=== PATIENT | female | born 1990 | race Caucasian/White ===

== ENCOUNTER 2020-08-17 15:24 | Outpatient (REF) | payer OTHER, SELFPAY | END 2020-08-17 15:25 | disposition home or self-care (01) | LOC: HO.LAB 15:24 | PROVIDERS: Visit Provider Internal Medicine | DX: Z20.828 Contact with and (suspected) exposure to other viral communicable diseases (principal) | CPT/HCPCS: 36415; C9803; U0003 ==

== ENCOUNTER 2022-03-25 11:31 | Emergency (ER) | payer OTHER, SELFPAY ==
--- NOTE | ~2022-03-25 | CT_ITS ---
EXAMINATION: CT HEAD WITHOUT CONTRAST CLINICAL INFORMATION: Right-sided facial drooping/lip swelling. COMPARISON: None TECHNIQUE: Contiguous axial imaging was performed from the skull base to vertex without intravenous administration of contrast. This CT examination was performed using dose optimization techniques as appropriate, variously including the following: *Automated exposure control *Adjustment of mA and/or kV according to patient size (this includes techniques or standardized protocols for targeted exams where dose is matched to indication/reason for exam; i.e. extremities or head) *Use of iterative reconstruction technique DLP: 722 mGy-cm FINDINGS: There is no evidence of acute intracranial hemorrhage or territorial infarction. No abnormal mass effect or midline shift is seen. Coats to white matter differentiation is well preserved. No extra-axial fluid collections are identified. The ventricles are normal in size. There is no abnormal attenuation within the brain parenchyma. The osseous structures and soft tissues are normal. The mastoid air cells and visualized portions of the paranasal sinuses are well aerated. CT/CT head/brain wo con IMPRESSION: No acute intracranial pathology.
--- NOTE | ~2022-03-25 | XR_ITS ---
EXAMINATION: XR CHEST CLINICAL INFORMATION: Chest pain. COMPARISON: None TECHNIQUE: Frontal view of the chest was obtained. FINDINGS: No significant abnormality is noted involving the heart, lungs, mediastinum, bony thorax or soft tissues. XR/XR chest 1V IMPRESSION: Unremarkable examination.
[2022-03-25 11:35] VITALS: BP 145/108; PULSE 90; RESP 20; TEMP 36.7; O2SAT 97; BMI 40.7
--- NOTE | 2022-03-25 12:21 | ECG_ITS ---
Test Reason : RIGHT SIDE NUMBNESS Blood Pressure : / mmHG Vent. Rate : 075 BPM Atrial Rate : 075 BPM P-R Int : 144 ms QRS Dur : 078 ms QT Int : 396 ms P-R-T Axes : 045 020 025 degrees QTc Int : 442 ms Normal sinus rhythm Normal ECG No previous ECGs available Referred By: Shannon Bacon Electronically Signed By:RASHAAD OVERTON
--- NOTE | 2022-03-25 12:25 | ED.GENADULT ---
HPI - General Adult General Chief complaint: General Medical Stated complaint: high BP/right side of body numb Time Seen by Provider: 03/25/22 11:43 Source: patient Mode of arrival: ambulatory History of Present Illness HPI narrative: 31-year-old female with a past medical history of Sjogren's disease, anxiety, GERD, presenting to the ED complaining of right-sided facial tingling, Facial droop, and lip swelling beginning at 02:00 last night. Reports tingling radiates to right ear and down RUE with associated chest tightness, palpitations, and SOB last night. Admits to taking Benadryl with mild symptomatic improvement. Symptoms still mildly present now however improved from onset. Reports right eye was tearing and had right-sided mouth drooling. Of note also reports right-sided headache x1 week, does report a history of headaches however this 1 has been persistent. Denies vision change/loss, neck pain, back pain, weakness, new medications or exposures, head trauma, nausea/vomiting. Denies taking anticoagulation Onset (ago): hour(s) Related Data Allergies Allergy/AdvReac Type Severity Reaction Status Date / Time No Known Allergies Allergy Verified 03/25/22 12:21 Review of Systems Review of Systems: Constitutional: No Fever, No Chills, No Fatigue, No Malaise ENT/Mouth: No Ear Pain, No Nasal Congestion, No Hoarseness, No sore throat, No Rhinorrhea, No Swallowing Difficulty Eyes: No Eye Pain, No Swelling, No Redness, No Foreign Body, No Discharge, No Vision Changes Cardiovascular: No Chest Pain, No SOB, No Edema, No Palpitations Respiratory: No Cough, No Sputum, No Dyspnea Gastrointestinal: No Nausea, No Vomiting, No Diarrhea, No Constipation, No Abdominal pain Genitourinary: No Dysuria, No Urinary Frequency, No Hematuria, No Urinary Incontinence/retention, No Flank Pain, No Urinary Flow Changes Musculoskeletal: No joint pain, No Myalgias, + lip Swelling Skin: No Skin Lesions, No rash Neuro: No Weakness, + Numbness, + Paresthesias, No Loss of Consciousness, No Dizziness, + Headache, +facial droop Yes all other systems are reviewed and are negative Constitutional: Constitutional: Reports as per HPI Neurologic: Denies Abnormal speech present and Reports Sensory deficit (Neuro) [facility] Past Medical History Attestation statement: The following information was validated with the patient. Social History Social History Advance Directives: No Advance Directives Information Provided: Yes Physical Exam ED Vital Signs: Vital Signs - 24 hr 03/25/22 11:35 03/25/22 15:37 Temperature 98.1 F 98.0 F Pulse Rate 90 79 Respiratory Rate 20 18 Blood Pressure 145/108 H 134/90 H Pulse Oximetry 97 99 Oxygen Delivery Method Room Air Room Air BMI result Body Mass Index 40.7 Const General: cooperative, healthy appearing, no acute distress, alert and awake Orientation/consciousness: patient oriented x3 Limitations: no limitations HENMT Head: Yes normal to inspection and Yes atraumatic Ears: hearing grossly normal bilaterally and mastoids normal General nose exam: Normal external nose present Mouth: Normal oral and palatal mucosa present and lip abnormal (Right lower lip with mild swelling) Throat: Yes posterior oropharynx normal, Yes tonsils normal, Yes uvula midline, No uvula laterally displaced and No uvular edema Eyes General: appearance normal, both eyes and all related structures Pupils: Equal, round and reactive pupils present EOM: EOMs intact bilaterally Neck Neck: Yes normal visual inspection and Yes no meningeal signs Resp Effort & Inspection: normal respiratory effort and no respiratory distress Auscultation: clear to auscultation bilaterally Cardio Rate: regular rate Heart sounds: S1 normal heart sound present and S2 normal heart sound present GI Inspection: Yes normal to inspection Palpation (GI): Soft to palpation, nontender, no guarding and not rigid General: Yes no CVA tenderness Back/Spine/Pelvis Back: no CVA tenderness Skin Rashes: no rashes Wounds: no wounds Neuro Other: No appreciable right-sided facial droop. Forehead not affected. Decreased reported sensation to light touch to right face General: patient oriented x3, gait normal, tone normal, moves all extremities, no meningeal signs, no focal motor deficits and CN's II-XI intact bilaterally Cranial nerves: Yes CN's II-XII intact bilaterally, Yes Equal, round and reactive pupils present, Yes Bilaterally intact EOM present, Yes Nystagmus not present, Yes Normal facial strength present and Yes Midline tongue present Cognition (Neuro): normal cognition Speech: No Abnormal speech present Gait exam (Neuro): Normal gait present Motor exam (neuro): 5/5 motor strength present throughout, Pronator motor function not present and no tremor noted Sensory Exam: Sensory deficit (Neuro) Coordination: [id number] test normal Romberg Test: Negative Extrem General: Yes normal to inspection Course Course Course Narrative: -1400--no leukocytosis. AST/ALT elevated, CRP minimally elevated. Troponin negative, labs otherwise unremarkable XR chest 1V IMPRESSION: Unremarkable examination. ? 1442--CT head/brain wo con IMPRESSION: No acute intracranial pathology. -case d/w Dr. Polanco who is in agreement unlikely Castro's palsy CVT or CVA. Does not recommend high-dose steroid/initiation of Acyclovir at this time -blood pressure improved without intervention. Results discussed with patient including worrisome signs and symptoms and strict return precautions. Swelling improved/resolved during ED visit Results discussed with patient including worrisome signs and symptoms and strict return precautions, and when to return to the emergency department. They verbalized understanding and feel safe for discharge at this time. Medical Decision Making MDM Narrative Medical decision making narrative: 31-year-old female with a past medical history of Sjogren's disease, anxiety, GERD, presenting to the ED complaining of right-sided facial tingling, Facial droop, and lip swelling beginning at 02:00 last night. Reports tingling radiates to right ear and down RUE with associated chest tightness, palpitations, and SOB. On exam hypertensive, NAD, No appreciable right-sided facial droop and forehead sparing. Sensation decreased to right side.+ right-sided lip swelling. Otherwise neuro exam nonfocal. Concern for CVA/TIA vs Allergic reaction, no evidence of angioedema vs metabolic abnormalities vs ?Trigeminal neuralgia. Lower suspicion for SAH. Rule out ACS. physical exam not consistent with Castro's palsy. Plan: EKG, labs, CXR, head CT, re-evaluate Medical Records Medical records reviewed: Yes I reviewed the patient's medical records. Lab Data Lab results reviewed: Yes I reviewed the patient's lab results. Result diagrams: 03/25/22 13:03/25/22 13: Labs: Lab Results 03/25/22 03/25/22 03/25/22 Range/Units : 13:22 13:22 WBC 5.9 (4.8-10.8) X10*3/uL RBC 5.19 (4.20-5.50) X10*6/uL Hgb 15.2 (12.0-16.0) g/dl Hct 45.4 (37.0-47.0) % MCV 87.5 (80.0-98.0) fL MCH 29.3 (27.0-33.0) pg MCHC 33.5 (31.0-35.0) g/dl RDW 13.2 (11.0-16.0) % Plt Count 327 (160-400) X10*3/uL MPV 10.4 (9.4-12.3) fL Immature Gran % (Auto) 0.3 (0.0-0.4) % Neut % (Auto) 59.2 (45-73) % Lymph % (Auto) 30.5 (20-40) % [place] % (Auto) 8.0 (2-11) % Eos % (Auto) 1.5 (0-4) % Baso % (Auto) 0.5 (0-2) % Lymph # (Auto) 1.8 (1.2-4.9) X10*3/uL [place] # (Auto) 0.5 (0.1-1.2) X10*3/uL Eos # (Auto) 0.1 (0.0-0.4) X10*3/uL Baso # (Auto) 0.0 (0.0-0.2) X10*3/uL Abs Immat Gran (auto) 0.02 (0.00-0.03) X10*3/uL Absolute Neuts (auto) 3.5 (2.0-8.3) x10*3/uL Absolute Nucleated RBC 0.000 (0.0-0.012) X10*3/uL Nucleated RBC % (auto) 0.0 (0.0-0.2) /100WBC ESR 14 (0-20) MM/HR PT (10.0-13.1) SEC INR (0.9-1.1) Sodium 140 (135-145) mmol/L Potassium 4.5 (3.3-5.1) mmol/L Chloride 102 (96-108) mmol/L Carbon Dioxide 26 (22-29) mmol/L Anion Gap 17 (12-20) BUN 13 (9-16) mg/dL Creatinine 0.78 (0.5-1.4) mg/dL Estim Creat Clear Calc 119.6 Estimated GFR > 60 Random Glucose 89 (60-115) mg/dL Calcium 9.9 (8.4-10.2) mg/dL Magnesium 1.9 (1.6-2.6) mg/dL Total Bilirubin 0.4 (0.0-1.0) mg/dL Direct Bilirubin 0.2 (0.0-0.5) mg/dL AST 40 H (5-31) U/L ALT 96 H (0-31) U/L Alkaline Phosphatase 64 (39-117) U/L Troponin I High Sens (<3.5-17.0) ng/L C-Reactive Protein 0.76 H (< or = 0.50) mg/dL Total Protein 8.5 H (6.5-8.0) g/dL Albumin 4.8 (3.5-5.0) g/dL TSH (0.32-4.0) uIU/mL COVID-19 ([facility]) (Negative) COVID-19 Clin Com 03/25/22 03/25/22 03/25/22 Range/Units 13:22 13:22 13:22 WBC (4.8-10.8) X10*3/uL RBC (4.20-5.50) X10*6/uL Hgb (12.0-16.0) g/dl Hct (37.0-47.0) % MCV (80.0-98.0) fL MCH (27.0-33.0) pg MCHC (31.0-35.0) g/dl RDW (11.0-16.0) % Plt Count (160-400) X10*3/uL MPV (9.4-12.3) fL Immature Gran % (Auto) (0.0-0.4) % Neut % (Auto) (45-73) % Lymph % (Auto) (20-40) % [place] % (Auto) (2-11) % Eos % (Auto) (0-4) % Baso % (Auto) (0-2) % Lymph # (Auto) (1.2-4.9) X10*3/uL [place] # (Auto) (0.1-1.2) X10*3/uL Eos # (Auto) (0.0-0.4) X10*3/uL Baso # (Auto) (0.0-0.2) X10*3/uL Abs Immat Gran (auto) (0.00-0.03) X10*3/uL Absolute Neuts (auto) (2.0-8.3) x10*3/uL Absolute Nucleated RBC (0.0-0.012) X10*3/uL Nucleated RBC % (auto) (0.0-0.2) /100WBC ESR (0-20) MM/HR PT 12.8 (10.0-13.1) SEC INR 1.1 (0.9-1.1) Sodium (135-145) mmol/L Potassium (3.3-5.1) mmol/L Chloride (96-108) mmol/L Carbon Dioxide (22-29) mmol/L Anion Gap (12-20) BUN (9-16) mg/dL Creatinine (0.5-1.4) mg/dL Estim Creat Clear Calc Estimated GFR Random Glucose (60-115) mg/dL Calcium (8.4-10.2) mg/dL Magnesium (1.6-2.6) mg/dL Total Bilirubin (0.0-1.0) mg/dL Direct Bilirubin (0.0-0.5) mg/dL AST (5-31) U/L ALT (0-31) U/L Alkaline Phosphatase (39-117) U/L Troponin I High Sens < 3.5 (<3.5-17.0) ng/L C-Reactive Protein (< or = 0.50) mg/dL Total Protein (6.5-8.0) g/dL Albumin (3.5-5.0) g/dL TSH (0.32-4.0) uIU/mL COVID-19 ([facility]) Negative (Negative) COVID-19 Clin Com See Note 03/25/22 Range/Units 13:22 WBC (4.8-10.8) X10*3/uL RBC (4.20-5.50) X10*6/uL Hgb (12.0-16.0) g/dl Hct (37.0-47.0) % MCV (80.0-98.0) fL MCH (27.0-33.0) pg MCHC (31.0-35.0) g/dl RDW (11.0-16.0) % Plt Count (160-400) X10*3/uL MPV (9.4-12.3) fL Immature Gran % (Auto) (0.0-0.4) % Neut % (Auto) (45-73) % Lymph % (Auto) (20-40) % [place] % (Auto) (2-11) % Eos % (Auto) (0-4) % Baso % (Auto) (0-2) % Lymph # (Auto) (1.2-4.9) X10*3/uL [place] # (Auto) (0.1-1.2) X10*3/uL Eos # (Auto) (0.0-0.4) X10*3/uL Baso # (Auto) (0.0-0.2) X10*3/uL Abs Immat Gran (auto) (0.00-0.03) X10*3/uL Absolute Neuts (auto) (2.0-8.3) x10*3/uL Absolute Nucleated RBC (0.0-0.012) X10*3/uL Nucleated RBC % (auto) (0.0-0.2) /100WBC ESR (0-20) MM/HR PT (10.0-13.1) SEC INR (0.9-1.1) Sodium (135-145) mmol/L Potassium (3.3-5.1) mmol/L Chloride (96-108) mmol/L Carbon Dioxide (22-29) mmol/L Anion Gap (12-20) BUN (9-16) mg/dL Creatinine (0.5-1.4) mg/dL Estim Creat Clear Calc Estimated GFR Random Glucose (60-115) mg/dL Calcium (8.4-10.2) mg/dL Magnesium (1.6-2.6) mg/dL Total Bilirubin (0.0-1.0) mg/dL Direct Bilirubin (0.0-0.5) mg/dL AST (5-31) U/L ALT (0-31) U/L Alkaline Phosphatase (39-117) U/L Troponin I High Sens (<3.5-17.0) ng/L C-Reactive Protein (< or = 0.50) mg/dL Total Protein (6.5-8.0) g/dL Albumin (3.5-5.0) g/dL TSH 0.84 (0.32-4.0) uIU/mL COVID-19 ([facility]) (Negative) COVID-19 Clin Com ECG Data Attestation: I personally reviewed and interpreted this ECG as follows: Interpretation: EKG normal sinus rhythm at a rate of 75. QTC 442. OH interval 144. No STEMI/nonischemic Discharge Plan Discharge Clinical Impression: Tingling of face Patient Disposition: Home, Self-Care Instructions: Paresthesia (ED) Additional Instructions: Your blood work, CT scan, and chest x-ray were reassuring today in the emergency department. Your liver enzymes are mildly elevated, follow up with her doctor in regards to this It is very important you have close follow-up with her doctor. If her symptoms persist, worsen, progress, if headache, weakness, fever please return to the emergency department Referrals: Lisa Jones NP [Primary Care Provider] - 2 days
[2022-03-25 13:30] LABS: Basophils Percent Auto 0.5 % (0-2); Eosinophils Absolute Auto 0.1 X10*3/uL (0.0-0.4); Eosinophils Percent Auto 1.5 % (0-4); Hematocrit 45.4 % (37.0-47.0); Hemoglobin 15.2 g/dl (12.0-16.0); Imm Gran Abs Auto 0.02 X10*3/uL (0.00-0.03); Imm Gran Pct Auto 0.3 % (0.0-0.4); Lymphocytes Absolute Auto 1.8 X10*3/uL (1.2-4.9); Lymphocytes Percent Auto 30.5 % (20-40); MANUAL DIFF FLAG NO; Mean Corpuscular HGB Conc 33.5 g/dl (31.0-35.0); Mean Corpuscular Hemoglobin 29.3 pg (27.0-33.0); Mean Corpuscular Volume 87.5 fL (80.0-98.0); Mean Platelet Volume 10.4 fL (9.4-12.3); Monocytes Absolute Auto 0.5 X10*3/uL (0.1-1.2); Neutrophils Absolute Auto 3.5 x10*3/uL (2.0-8.3); Neutrophils Percent Auto 59.2 % (45-73); Platelet Count 327 X10*3/uL (160-400); Red Blood Count 5.19 X10*6/uL (4.20-5.50); Red Cell Distribution Width 13.2 % (11.0-16.0); White Blood Count 5.9 X10*3/uL (4.8-10.8)
[2022-03-25 13:37] LABS: INTERNATIONAL NORM RATIO 1.1 (0.9-1.1); Prothrombin Time 12.8 SEC (10.0-13.1)
[2022-03-25 13:45] LABS: Alanine Aminotransferase 96 U/L (0-31); Albumin Level 4.8 g/dL (3.5-5.0); Alkaline Phosphatase 64 U/L (39-117); Anion Gap 17 (12-20); Aspartate Amino Transferase 40 U/L (5-31); Bilirubin Direct 0.2 mg/dL (0.0-0.5); Bilirubin Total 0.4 mg/dL (0.0-1.0); Blood Urea Nitrogen 13 mg/dL (9-16); C Reactive Protein 0.76 mg/dL (< or = 0.50); Calcium 9.9 mg/dL (8.4-10.2); Carbon Dioxide 26 mmol/L (22-29); Chloride 102 mmol/L (96-108); Creatinine Clr Calc Pharmacy 119.6; Estimated Glomerular Filt Rate > 60; Glucose Random 89 mg/dL (60-115); Magnesium 1.9 mg/dL (1.6-2.6); Potassium 4.5 mmol/L (3.3-5.1); Sodium 140 mmol/L (135-145); Total Protein 8.5 g/dL (6.5-8.0)
[2022-03-25 13:49] LABS: COVID-19 Test Negative (Negative); IDNOW Serial# 16C4AD1C
[2022-03-25 13:52] LABS: Troponin-I High Sensitivity < 3.5 ng/L (<3.5-17.0)
[2022-03-25 14:05] LABS: TSH reflex Free T4 0.84 uIU/mL (0.32-4.0)
[2022-03-25 14:08] LABS: Erythrocyte Sedimentation Rate 14 MM/HR (0-20)
[2022-03-25 15:37] VITALS: BP 134/90; PULSE 79; RESP 18; TEMP 36.7; O2SAT 99
--- NOTE | 2022-03-25 15:42 | PC.NURSE ---
assumed care of pt, recheck vss - pt remains hypertensive, denies any pain at this time. provider notified of vss.
[2022-03-30 10:00] LABS: 18 KD (IgG) Band NON-REACTIVE; 23 KD (IgG) Band NON-REACTIVE; 23 KD (IgM) Band NON-REACTIVE; 28 KD (IgG) Band NON-REACTIVE; 30 KD (IgG) Band NON-REACTIVE; 39 KD (IgM) Band NON-REACTIVE; 39KD (IgG) Band NON-REACTIVE; 41 KD (IgM) Band NON-REACTIVE; 41KD (IgG) Band NON-REACTIVE; 45 KD (IgG) Band REACTIVE; 58 KD (IgG) Band REACTIVE; 66 KD (IgG) Band REACTIVE; 93 KD (IgG) Band NON-REACTIVE; Lyme Abs Screen POSITIVE; Lyme IgG Blot Interp NEGATIVE (NEGATIVE); Lyme IgM Blot Interp NEGATIVE (NEGATIVE)
== END 2022-03-25 16:37 | disposition home or self-care (01) ==
PROVIDERS: Physician Assistant; Emergency Provider Student in an Organized Health Care Education/Training Program; PCP Nurse Practitioner Family
DX: R20.2 Paresthesia of skin (principal); R06.02 Shortness of breath; Z20.822 Contact with and (suspected) exposure to COVID-19
CPT/HCPCS: 36415; 70450; 71045; 80048; 80076; 83735; 84443; 84484; 85025; 85610; 85652; 86140; 86617; 86618; 87635; 93005; 99283; 99284

== ENCOUNTER 2022-05-23 22:05 | Emergency (ER) | payer OTHER, SELFPAY ==
--- NOTE | ~2022-05-23 | CT_ITS ---
EXAMINATION: CT HEAD WITHOUT CONTRAST CLINICAL INFORMATION: Severe right-sided headache COMPARISON: 03/25/2022 TECHNIQUE: Contiguous axial imaging was performed from the skull base to vertex without intravenous administration of contrast. This CT examination was performed using dose optimization techniques as appropriate, variously including the following: *Automated exposure control *Adjustment of mA and/or kV according to patient size (this includes techniques or standardized protocols for targeted exams where dose is matched to indication/reason for exam; i.e. extremities or head) *Use of iterative reconstruction technique DLP: 719 mGy-cm FINDINGS: There is no evidence of acute intracranial hemorrhage or territorial infarction. No abnormal mass-effect or midline shift is seen. Coats to white matter differentiation is well preserved. No extra-axial fluid collections are identified. The ventricles are normal in size. There is no abnormal attenuation within the brain parenchyma. The osseous structures and soft tissues are normal. The mastoid air cells and visualized portions of the paranasal sinuses are well-aerated. CT/CT head/brain wo IV con IMPRESSION: No acute intracranial pathology.
[2022-05-23 23:06] VITALS: BP 148/97; PULSE 103; RESP 18; TEMP 36.9; O2SAT 97; BMI 40.7
--- OUTSIDE RECORDS SUMMARY | 2022-05-23 23:32 | XMS_ITS | Continuity of Care Document ---
:1990 Author Organization [facility] Address [address] [place] [address]- Care Team Providers Name Role Phone Saray GARCIA, Deneen Primary Care Physician Encounter [facility] NBR [id number] Date(s): 10/22/20 - [facility] [address] [place] [address]- Allergies, Adverse Reactions, Alerts Substance Reaction Severity Status NKA Active Immunizations Given and Recorded Vaccine Date Status Refusal Reason Influenza Virus Vaccine (oldterm) 05/19/19 Recorded Influenza Virus Vaccine (oldterm) 05/20/18 Recorded Influenza Virus Vaccine (oldterm) 05/13/17 Recorded tetanus/diphtheria/pertussis, acel(Tdap) 04/21/14 Recorde d influenza virus vaccine, inactivated 06/20/13 Recorded Human Papillomavirus Vaccine 06/03/13 Recorded Human Papillomavirus Vaccine 08/23/09 Recorded Human Papillomavirus Vaccine 02/17/08 Recorded Meningococcal Conjugate Vaccine 08/23/09 Recorded hepatitis B pediatric vaccine 09/13/01 Recorded hepatitis B pediatric vaccine 04/12/01 Recorded hepatitis B pediatric vaccine 03/12/01 Recorded tetanus-diphtheria toxoids (Td) 03/12/01 Recorded Varicella Virus Vaccine 05/27/98 Recorded Poliovirus Vaccine, Inactivated 01/02/95 Recorded Poliovirus Vaccine, Inactivated 07/21/91 Recorded Measles/Mumps/Rubella Virus Vaccine 01/02/95 Recorded Measles/Mumps/Rubella Virus Vaccine 01/16/91 Recorded diphtheria/tetanus/pertussis, acel(DTaP) 01/02/95 Recorde d diphtheria/tetanus/pertussis, acel(DTaP) 07/21/91 Recorde d Haemophilus B Conj Vaccine (oldterm) 01/16/91 Recorded Medications citalopram 20 mg oral tablet 20 mg, 1, tablet, By Mouth, Daily, # 30 tablet, Refills 0, Tot. Refills 0, Maintenance, 08/09/20 17:17:00 EST, Route to Pharmacy Electronically, [facility]/pharmacy #[id number], Partial fill upon patient request ifthe prescription is for a schedule II opioid drug. Start Date: 08/09/20 Status: Orderedomeprazole 20 mg oral enteric coated capsule 1 capsule = 20 mg, By Mouth, 2 times a day, # 30 capsule, 0 Refills, Maintenance, 10/21/20 15:34:00 EST, EC Capsule, Partial fill upon patient request if the prescription is for a schedule II opioid drug. Start Date: 10/21/20 Status: OrderedProAir HFA 90 mcg/inh inhalation aerosol 2 puffs, Inhalation, Every 4 hours, PRN as needed for wheezing, # 6.7 Gm, 0 Refills, Maintenance, 10/21/20 15:36:00 EST, Aerosol, Partial fill upon patient request if the prescription is for a scheduleII opioid drug. Start Date: 10/21/20 Status: Orderedriboflavin 100 mg oral tablet 2 tablet = 200 mg, By Mouth, 2 times a day, # 30 tablet, 0 Refills, Maintenance, 10/21/20 15:33:00 EST, Tablet, Partial fill upon patient request if the prescription is for a schedule II opioid drug. Start Date: 10/21/20 Status: Orderedtopiramate 25 mg oral tablet 0 Refills, Maintenance, 08/09/20 17:24:00 EST, Partial fill upon patient request if the prescriptionis for a schedule II opioid drug. Start Date: 08/09/20 Status: OrderedVITAMIN B-2 100 MG TABLET VITAMIN B-2 100 MG TABLET, 0 Refills, Maintenance, 08/09/20 17:25:00 EST Start Date: 08/09/20 Status: OrderedVitamin D3 1000 intl units oral capsule 1 capsule = 1,000 International_Units, By Mouth, Daily, # 75 capsule, 0 Refills, Maintenance, 10/21/20 15:35:00 EST, Capsule, Partial fill upon patient request if the prescription is for a schedule II opioid drug. Start Date: 10/21/20 Status: Ordered Problem List Condition Effective Dates Status Health Status Informant Acne(Confirmed) Active Allergic rhinitis(Confirmed) Active JOSE positive(Confirmed) Active Carpal tunnel syndrome, Active left(Confirmed) Contusion of right shoulder(Confirmed) Active Internal derangement of knee Active joint(Confirmed) Acid reflux disease(Confirmed) Active History of pelvic fracture(Confirmed) Active Hirsutism(Confirmed) Active Insomnia(Confirmed) Active Migraine(Confirmed) Active Anxiety with depression(Confirmed) Active Pain in joints(Confirmed) Active Nodular thyroid disease(Confirmed) Active Supervision of normal Active (Confirmed) Encounter to establish care(Confirmed) Active PTSD (post-traumatic stress Active disorder)(Confirmed) Rectal bleeding(Confirmed) Active Sjogren's syndrome(Confirmed) Active Sleep apnea(Confirmed) Active Hepatic steatosis(Confirmed) Active Vitamin D deficiency(Confirmed) Active Social History Social History Type Response Smoking Status Never (less than 100 in life time) entered on: 08/09/20 Sex
--- OUTSIDE RECORDS SUMMARY | 2022-05-23 23:33 | XMS_ITS | Continuity of Care Document ---
:1990 Author Organization [facility] Address [address] [place] [address]- Care Team Providers Name Role Phone Deneen So NP Primary Care Physician Encounter [email or web address] NBR [id number] Date(s): 10/28/21 - 11/27/21 [facility] [address] [place] [address]- Allergies, Adverse Reactions, Alerts No Known Allergies Immunizations Given and Recorded Vaccine Date Status Refusal Reason influenza virus vaccine, inactivated 05/13/21 Recorded influenza virus vaccine, inactivated 06/04/20 Recorded influenza virus vaccine, inactivated 06/20/13 Recorded SARS-CoV-2 (COVID-19) mRNA-1273 vaccine 12/11/20 Recorded SARS-CoV-2 (COVID-19) mRNA-1273 vaccine 11/13/20 Recorded Influenza Virus Vaccine (oldterm) 05/19/19 Recorded Influenza Virus Vaccine (oldterm) 05/20/18 Recorded Influenza Virus Vaccine (oldterm) 05/13/17 Recorded tetanus/diphtheria/pertussis, acel(Tdap) 04/21/14 Recorde d tetanus/diphtheria/pertussis, acel(Tdap) 03/12/01 Recorde d Human Papillomavirus Vaccine 06/03/13 Recorded Human Papillomavirus [...] B Conj Vaccine (oldterm) 01/16/91 Recorded Medications cyclobenzaprine 5 mg oral tablet See Instructions, Take 1 tablet every 8 hours as needed for muscle spasm, # 21 capsule, 0 Refills, Maintenance, 06/28/21 15:50:00 EST, Tablet, [facility]/pharmacy #[id number], Partial fill upon patient request if the prescription is for a schedule II opioid drug.,... Start Date: 06/28/21 Status: OrderedProAir HFA 90 mcg/inh inhalation aerosol 2 puffs, Inhalation, Every 4 hours, PRN as needed for wheezing, # 6.7 Gm, 0 Refills, Maintenance, 10/21/20 15:36:00 EST, Aerosol, Partial fill upon patient request if the prescription is for a scheduleII opioid drug. Start Date: 10/21/20 Status: OrderedVitamin D3 1000 intl units oral [...] positive(Confirmed) Active Carpal tunnel syndrome, Active left(Confirmed) Chest wall pain(Confirmed) Active Contusion of right shoulder(Confirmed) Active Internal derangement of knee Active joint(Confirmed) Acid reflux disease(Confirmed) Active History of pelvic fracture(Confirmed) Active Hirsutism(Confirmed) Active Insomnia(Confirmed) Active Bilateral nephrolithiasis(Confirmed) Active Migraine(Confirmed) Active Anxiety with depression(Confirmed) Active Pain in joints(Confirmed) Active Nodular thyroid disease(Confirmed) Active Pulmonary nodule(Confirmed)1 Active Supervision of normal Active (Confirmed) Throat pain(Confirmed) Active PTSD (post-traumatic stress Active disorder)(Confirmed) Rectal bleeding(Confirmed) Active Severe obesity(Confirmed) Active Sjogren's syndrome(Confirmed) Active Sleep apnea(Confirmed) Active Hepatic steatosis(Confirmed) Active Thyroid nodule(Confirmed) Active Vitamin D deficiency(Confirmed) Active 13 mm Social History Social History Type Response Smoking Status Never (less than 100 in life time) entered on: 08/09/20 Sex
--- OUTSIDE RECORDS SUMMARY | 2022-05-23 23:33 | XMS_ITS | Continuity of Care Document ---
:1990 Author Organization [facility] Address [address] [place] [id number]- Care Team Providers Name Role Phone Deneen So NP Primary Care Physician [place] [facility] [place]03/20 [facility] [address] [place] [id number] Allergies, Adverse Reactions, Alerts Substance Reaction Severity [...] 08/09/20 17:17:00 EST, Route to Pharmacy Electronically, [facility]/pharmacy #[id number], Partial fill upon patient request ifthe prescription [...]
--- OUTSIDE RECORDS SUMMARY | 2022-05-23 23:33 | XMS_ITS | Continuity of Care Document ---
:1990 Author Organization [facility] Address [address] [place] [address]- Care Team Providers Name Role Phone Deneen So NP Primary Care Physician [place] [facility] [place]21 [facility] [address] [place] [id number] Attending Physician: Russ Valenzuela MD Admitting Physician: Russ Valenzuela MD Referring Physician: Deneen So NP Allergies, Adverse Reactions, Alerts No Known Allergies [...] 0 Refills, Maintenance, 06/28/21 15:50:00 EST, Tablet, [facility]/pharmacy #[id number], Partial fill upon patient request if [...] disease(Confirmed) Active Supervision of normal Active (Confirmed) PTSD (post-traumatic stress Active disorder)(Confirmed) Rectal bleeding(Confirmed) Active Severe obesity(Confirmed) Active Sjogren's syndrome(Confirmed) Active Sleep apnea(Confirmed) Active Hepatic steatosis(Confirmed) Active Thyroid nodule(Confirmed) Active Vitamin D deficiency(Confirmed) Active Social History Social History Type Response Smoking Status Never (less than 100 in life time) entered on: 08/09/20 Sex
--- OUTSIDE RECORDS SUMMARY | 2022-05-23 23:33 | XMS_ITS | Continuity of Care Document ---
:1990 Author Organization [facility] Address [address] [place] [address] Drive [address] [place] [address]- Care Team Providers Name Role Phone Deneen So NP Primary Care Physician Encounter [facility] Date(s): 09/06/20 - 10/06/[address] [place] [address]- Attending Physician: Rylie Little Admitting Physician: AdmtrRylie Referring Physician: Admtr ArHaseeb Allergies, Adverse Reactions, Alerts Substance Reaction Severity Status NKA Active Medications citalopram 20 mg oral tablet 20 mg, 1, tablet, By Mouth, Daily, # 30 tablet, Refills 0, Tot. Refills 0, Maintenance, 08/09/20 17:17:00 EST, Route to Pharmacy Electronically, [facility]/pharmacy #[id number], Partial fill upon patient request ifthe prescription is for a schedule II opioid drug. Start Date: 08/09/20 Status: OrderedPlenvu oral powder for reconstitution See Instructions, Complete on day before procedure, # 1,000 mL, 0 Refills, Maintenance, 09/30/20 16:01:00 EST, [facility]/pharmacy #[id number], Partial fill upon patient request if the prescription is for a schedule II opioid drug., Complete on day before procedure Start Date: 09/30/20 Status: Orderedtopiramate 25 mg oral tablet 0 Refills, Maintenance, 08/09/20 17:24:00 EST, Partial fill upon patient request if the prescriptionis for a schedule II opioid drug. Start Date: 08/09/20 Status: OrderedVITAMIN B-2 100 MG TABLET VITAMIN B-2 100 MG TABLET, 0 Refills, Maintenance, 08/09/20 17:25:00 EST Start Date: 08/09/20 Status: Ordered Problem List Condition Effective Dates Status Health Status Informant Acid reflux disease(Confirmed) Active Insomnia(Confirmed) Active Migraine(Confirmed) Active Anxiety with depression(Confirmed) Active Pain in joints(Confirmed) Active Encounter to establish care(Confirmed) Active PTSD (post-traumatic stress Active disorder)(Confirmed) Rectal bleeding(Confirmed) Active Sleep apnea(Confirmed) Active Vitamin D deficiency(Confirmed) Active Social History Social History Type Response Smoking Status Never (less than 100 in life time) entered on: 08/09/20 Sex
--- OUTSIDE RECORDS SUMMARY | 2022-05-23 23:33 | XMS_ITS | Continuity of Care Document ---
:1990 Author Organization [facility] Address [address] [place] [address]- Care Team Providers Name Role Phone Saray GARCIA, Deneen Primary Care Physician Encounter [facility] NBR [id number] Date(s): 11/03/21 - 12/03/[address] [address] Allergies, Adverse Reactions, Alerts No Known Allergies [...] 0 Refills, Maintenance, 06/28/21 15:50:00 EST, Tablet, [facility]/pharmacy #[id number], Partial fill upon patient request if [...]
--- OUTSIDE RECORDS SUMMARY | 2022-05-23 23:33 | XMS_ITS | Continuity of Care Document ---
:1990 Author Organization [facility] Address [address] [facility] [address] [place] [address]- Care Team Providers Name Role Phone Saray GARCIA, Deneen Primary Care Physician Encounter 11/02/21 - 11/09/21 [facility] [address], [address] [place] [address]- Encounter Diagnosis Bilateral nephrolithiasis (Discharge Diagnosis) - 11/04/21 Pulmonary nodule (Discharge Diagnosis) - 11/04/21 Attending Physician: Deneen So NP Admitting Physician: Deneen So NP Referring Physician: Deneen So NP Allergies, Adverse [...] Active Vitamin D deficiency(Confirmed) Active 13 mm Diagnosis Diagnosis Type Effective Dates Health Clinical Infor mant Status Service Bilateral Discharge 11/04/21 nephrolithiasis Diagnosis Pulmonary nodule Discharge 11/04/21 Diagnosis Social History Social History Type Response Smoking Status Never (less than 100 in life time) entered on: 08/09/20 Sex
--- OUTSIDE RECORDS SUMMARY | 2022-05-23 23:33 | XMS_ITS | Continuity of Care Document ---
:1990 Author Organization [facility] Address [address] [place] [address]- Care Team Providers Name Role Phone Saray GARCIA, Deneen Primary Care Physician [facility]counter [facility] Date(s): 02/10/21 - 03/12/21 [facility] [address] [place] [address]- Allergies, Adverse Reactions, Alerts Substance Reaction Severity [...] 08/09/20 17:17:00 EST, Route to Pharmacy Electronically, [facility]/pharmacy #[id number], Partial fill upon patient request ifthe prescription [...]
--- OUTSIDE RECORDS SUMMARY | 2022-05-23 23:33 | XMS_ITS | Continuity of Care Document ---
:1990 Author Organization [facility] Address [address] [place] [address]- Care Team Providers Name Role Phone Saray GARCIA, Deneen Primary Care Physician Encounter [facility] Date(s): 04/12/22 - 05/13/22 [facility] [address] [place] [address]- Attending Physician: Juli Bonds Allergies, Adverse Reactions, Alerts No Known Allergies [...] B Conj Vaccine (oldterm) 01/16/91 Recorded Medications buPROPion 150 mg/24 hours (XL) oral tablet, extended release 1 tablet = 150 mg, By Mouth, Every 24 hours, for 30 days, # 30 tablet, 2 Refills, Acute 06/16/22 11:34:00 EDT, 03/18/22 11:34:00 EDT, ER Tablet, [facility]/pharmacy #[id number], 1 tablet By Mouth Every 24 hours,[id number], 159, cm, 02/21/22 11:23:00 EDT, Height, 98.... Start Date: 03/18/22 Stop Date: 06/16/22 Status: OrderedbuPROPion 150 mg/24 hours (XL) oral tablet, extended release 1 tablet = 150 mg, By Mouth, Every 24 hours, for 30 days, # 30 tablet, 3 Refills, Acute 10/14/22 11:34:00 EST, 06/16/22 11:34:00 EDT, ER Tablet, [facility]/pharmacy #[id number], 1 tablet By Mouth Every 24 hours,[id number], 159, cm, 02/21/22 11:23:00 EDT, Height, 98.... Start Date: 06/16/22 Stop Date: 10/14/22 Status: Orderedhydroxychloroquine 200 mg oral tablet 2, tablet, By Mouth, Daily, # 60 tablet, Refills 3, Route to Pharmacy Electronically, [facility] STORE [id number], 159, cm, 06/28/21 15:10:00 EST, Height, 98.4, kg, 10/20/20 7:15:00 EST, Dry Weight Start Date: 10/29/21 Status: Ordered Problem List Condition Confirmation Course Effective Dates Status Health I nformant Status Acne Confirmed Active Allergic rhinitis Confirmed Active JOSE positive Confirmed Active Carpal tunnel Confirmed Active syndrome, left Chest wall pain Confirmed Active Contusion of right Confirmed Active shoulder Internal derangement Confirmed Active of knee joint Acid reflux disease Confirmed Active History of pelvic Confirmed Active fracture Hirsutism Confirmed Active Insomnia Confirmed Active Bilateral Confirmed Active nephrolithiasis Migraine Confirmed Active Anxiety with Confirmed Active depression Pain in joints Confirmed Active Nodular thyroid Confirmed Active disease Pulmonary nodule1 Confirmed Active Throat pain Confirmed Active PTSD (post-traumatic Confirmed Active stress disorder) Rectal bleeding Confirmed Active Severe obesity Confirmed Active Sjogren's syndrome Confirmed Active Sleep apnea Confirmed Active Hepatic steatosis Confirmed Active Thyroid nodule Confirmed Active Vitamin D deficiency Confirmed Active 13 mm Social History Social History Type Response Smoking Status Never (less than 100 in life time) entered on: 08/09/20 Sex Patient Care team information PersonnelName: Deneen So NP Address: Address: [address] [place] [address]-
--- OUTSIDE RECORDS SUMMARY | 2022-05-23 23:33 | XMS_ITS | Continuity of Care Document ---
:1990 Author Organization [facility] Address [address] [place] [address]- Care Team Providers Name Role Phone Deneen So NP Primary Care Physician Encounter [facility] NBR [id number] Date(s): 12/07/20 - 02/26/21 [facility] [address] [place] [address] Attending Physician: Stewart Johns MD Allergies, Adverse Reactions, Alerts Substance Reaction Severity [...] 08/09/20 17:17:00 EST, Route to Pharmacy Electronically, [facility]/pharmacy #[id number], Partial fill upon patient request ifthe prescription [...]
--- OUTSIDE RECORDS SUMMARY | 2022-05-23 23:33 | XMS_ITS | Continuity of Care Document ---
:1990 Author Organization [facility] Address [address] [place] [address]- Care Team Providers Name Role Phone Saray GARCIA, Deneen Primary Care Physician Encounter [facility] Date(s): 06/27/21 - 07/27/21 [facility] Adult [address] [place] [address]- Allergies, Adverse Reactions, Alerts Substance Reaction Severity [...] 0 Refills, Maintenance, 06/28/21 15:50:00 EST, Tablet, [facility]/pharmacy #[id number], Partial fill upon [...]
--- OUTSIDE RECORDS SUMMARY | 2022-05-23 23:33 | XMS_ITS | Continuity of Care Document ---
:[address] [facility] Address [address] [place] [address]- Care Team Providers Name Role Phone Deneen So NP Primary Care Physician Encounter [facility] Date(s): 11/04/21 - 12/04/21 [facility] [address] [place] [address] Allergies, Adverse Reactions, Alerts No Known Allergies [...] 0 Refills, Maintenance, 06/28/21 15:50:00 EST, Tablet, [facility]/pharmacy #[id number], Partial fill upon patient request [...]
--- OUTSIDE RECORDS SUMMARY | 2022-05-23 23:33 | XMS_ITS | Continuity of Care Document ---
:1990 Author Organization [facility] Address [address] [place] [address]- Care Team Providers Name Role Phone Saray GARCIA, Deneen Primary Care Physician Encounter [facility] Date(s): 12/19/21 - 01/18/22 [facility] [address] [place] [address]- Allergies, Adverse Reactions, Alerts No Known Allergies [...] hours, for 30 days, # 30 tablet, 1 Refills, Acute 03/18/22 11:34:00 EDT, 01/17/22 11:34:00 EDT, ER Tablet, [facility]/pharmacy #[id number], 1 tablet By Mouth Every 24 hours,[id number], 159, cm, 01/17/22 11:06:00 EDT, Height, 98.... Start Date: 01/17/22 Stop Date: 03/18/22 Status: OrderedProAir HFA 90 mcg/inh inhalation aerosol 2 puffs = 180 mcg, Inhalation, Every 4 hours, PRN as needed for wheezing, for 30 days, # 1 each, 0 Refills, Acute 02/16/22 11:34:00 EDT, 01/17/22 11:34:00 EDT, Inhaler, [facility]/pharmacy #[id number], 2 puffs Inhalation Every 4 hours,x30 days,PRN:as needed for wh... Start Date: 01/17/22 Stop Date: 02/16/22 Status: Ordered Problem List Condition Effective Dates [...] Nodular thyroid disease(Confirmed) Active Pulmonary nodule(Confirmed)1 Active Throat pain(Confirmed) Active PTSD (post-traumatic stress Active disorder)(Confirmed) Rectal bleeding(Confirmed) Active Severe obesity(Confirmed) Active Sjogren's syndrome(Confirmed) Active Sleep apnea(Confirmed) Active Hepatic steatosis(Confirmed) Active Thyroid nodule(Confirmed) Active Vitamin D deficiency(Confirmed) Active 13 mm Social History Social History Type Response Smoking Status Never (less than 100 in life time) entered on: 08/09/20 Sex
--- OUTSIDE RECORDS SUMMARY | 2022-05-23 23:33 | XMS_ITS | Continuity of Care Document ---
:1990 Author Organization [facility] Address [address] [place] [address]- Care Team Providers Name Role Phone Saray GARCIA, Deneen Primary Care Physician Encounter [facility] Date(s): 01/19/21 - 02/25/[address] [address] Attending Physician: Tiffany Lozano NP Admitting Physician: Tiffany Lozano NP Referring Physician: Tiffany Lozano NP Allergies, Adverse Reactions, Alerts Substance Reaction Severity [...] 17:17:00 EST, Route to Pharmacy Electronically, [facility]/pharmacy #[id number], Partial fill upon patient request ifthe prescription [...]
--- OUTSIDE RECORDS SUMMARY | 2022-05-23 23:33 | XMS_ITS | Continuity of Care Document ---
:1990 Author Organization [facility] Address [address] [place] [address]- Care Team Providers Name Role Phone Deneen So NP Primary Care Physician Encounter [facility] Date(s): 12/08/21 - 01/07/22 [facility] [address] [place] [address] Attending Physician: Rylie Little Admitting Physician: AdmRylie sewell Referring Physician: AdmtrRylie Allergies, Adverse Reactions, Alerts No Known Allergies [...]
--- OUTSIDE RECORDS SUMMARY | 2022-05-23 23:33 | XMS_ITS | Continuity of Care Document ---
:1990 Author Organization [facility] Address [address] [place] [address]- Care Team Providers Name Role Phone Saray GARCIA, Deneen Primary Care Physician Encounter [facility] Date(s): 04/13/22 - 05/13/22 [facility] [address] [place] [address]- Attending Physician: Admtr, Trent8 Admitting Physician: Admtr, Trent8 Referring Physician: Admtr, Ar8 Allergies, Adverse Reactions, Alerts No Known Allergies [...] 11:34:00 EDT, 03/18/22 11:34:00 EDT, ER Tablet, [facility]/pharmacy #[id number], 1 tablet By Mouth Every 24 hours,[id number], 159, cm, 02/21/22 11:23:00 EDT, Height, 98.... Start Date: 03/18/22 Stop Date: 06/16/22 Status: OrderedbuPROPion 150 mg/24 hours (XL) oral tablet, extended release 1 tablet = 150 mg, By Mouth, Every 24 hours, for 30 days, # 30 tablet, 3 Refills, Acute 10/14/22 11:34:00 EST, 06/16/22 11:34:00 EDT, ER Tablet, [facility]/pharmacy #[id number], 1 tablet By Mouth Every 24 hours,[id number], 159, cm, 02/21/22 11:23:00 EDT, Height, 98.... Start Date: 06/16/22 Stop Date: 10/14/22 Status: Orderedhydroxychloroquine 200 mg oral tablet 2, tablet, By Mouth, Daily, # 60 tablet, Refills 3, Route to Pharmacy Electronically, [facility] STORE [id number], 159, cm, 06/28/21 15:10:00 EST, Height, 98.4, [...] information PersonnelName: Deneen So NP Address: Address: [address] [place] [address]
--- OUTSIDE RECORDS SUMMARY | 2022-05-23 23:33 | XMS_ITS | Continuity of Care Document ---
:1990 Author Organization [facility] Address Unavailable , Care Team Providers Name Role Phone Deneen So NP Primary Care Physician Encounter [facility] Date(s): 05/17/21 - 06/16/21 [facility] Allergies, Adverse Reactions, Alerts Substance Reaction Severity [...] B Conj Vaccine (oldterm) 01/16/91 Recorded Medications ProAir HFA 90 mcg/inh inhalation aerosol 2 puffs, [...]
--- OUTSIDE RECORDS SUMMARY | 2022-05-23 23:33 | XMS_ITS | Continuity of Care Document ---
:1990 Author Organization [facility] Address [address] [place] [address]- Care Team Providers Name Role Phone Deneen So NP Primary Care Physician Encounter [facility] Date(s): 09/08/21 - 10/08/21 [facility] [address] [place] [address] Attending Physician: AdmRylie sewell Admitting Physician: Admtr, ArHaseeb Referring Physician: Admtr, Ar8 Allergies, Adverse Reactions, [...]
--- OUTSIDE RECORDS SUMMARY | 2022-05-23 23:33 | XMS_ITS | Continuity of Care Document ---
:1990 Author Organization [facility] Address [address] [place] [address]- Care Team Providers Name Role Phone Saray GARCIA, Deneen Primary Care Physician [place] [facility] Date(s): 09/30/20 - 10/30/20 [facility] [address] [place] [address]- Allergies, Adverse Reactions, Alerts Substance Reaction Severity [...] 08/09/20 17:17:00 EST, Route to Pharmacy Electronically, [facility]/pharmacy #[id number], Partial fill upon patient request ifthe prescription [...]
--- OUTSIDE RECORDS SUMMARY | 2022-05-23 23:33 | XMS_ITS | Continuity of Care Document ---
:1990 Author Organization [facility] Address [address] [place] [address]- Care Team Providers Name Role Phone Deneen So NP Primary Care Physician Encounter [facility] Date(s): 08/09/20 - 09/08/20 [facility] [address] [place] [address]- Attending Physician: Rylie Little Admitting Physician: AdmtrRylie Referring Physician: Admtr, Ar8 Allergies, Adverse Reactions, Alerts Substance Reaction Severity Status NKA Active Medications citalopram 20 mg oral tablet 20 mg, 1, tablet, By Mouth, Daily, # 30 tablet, Refills 0, Tot. Refills 0, Maintenance, 08/09/20 17:17:00 EST, Route to Pharmacy Electronically, [facility]/pharmacy #[id number], Partial fill upon patient request ifthe prescription is for a schedule II opioid drug. Start Date: 08/09/20 Status: Orderedtopiramate 25 mg oral tablet 0 [...]
--- OUTSIDE RECORDS SUMMARY | 2022-05-23 23:33 | XMS_ITS | Continuity of Care Document ---
:[address] [facility] Address [address] [place] [address]- Care Team Providers Name Role Phone Saray GARCIA, Deneen Primary Care Physician Encounter [facility] Date(s): 02/11/21 - 03/13/21 [facility] [address] [place] [address]- Allergies, Adverse Reactions, Alerts Substance Reaction Severity [...] 08/09/20 17:17:00 EST, Route to Pharmacy Electronically, [facility]/pharmacy #[id number], Partial fill upon patient request ifthe prescription [...]
--- OUTSIDE RECORDS SUMMARY | 2022-05-23 23:33 | XMS_ITS | Continuity of Care Document ---
:1990 Author Organization [facility] Address Unavailable , Care Team Providers Name Role Phone Deneen So NP Primary Care Physician En[place] [facility] Date(s): 05/10/21 - 06/09/21 [facility] Allergies, Adverse Reactions, Alerts Substance [...]
--- OUTSIDE RECORDS SUMMARY | 2022-05-23 23:33 | XMS_ITS | Continuity of Care Document ---
:1990 Author Organization [facility] Address [address] [place] [address]- Care Team Providers Name Role Phone Saray GARCIA, Deneen Primary Care Physician Encounter [facility] Date(s): 01/27/21 - 03/11/[address] [address] Attending Physician: Tiffany Lozano NP Admitting Physician: [...] 08/09/20 17:17:00 EST, Route to Pharmacy Electronically, [id number]/pharmacy #[id number], Partial fill upon patient request ifthe prescription [...]
--- OUTSIDE RECORDS SUMMARY | 2022-05-23 23:33 | XMS_ITS | Continuity of Care Document ---
:1990 Author Organization [facility] Adult Address [address] [place] [address]- Care Team Providers Name Role Phone Saray GARCIA, Deneen Primary Care Physician Encounter [facility] Date(s): 04/13/22 - 05/13/22 [facility] [address] [place] [address]- Allergies, Adverse Reactions, Alerts No Known Allergies [...] 11:34:00 EDT, 03/18/22 11:34:00 EDT, ER Tablet, [facility]/pharmacy #[id number], 1 tablet By Mouth Every 24 hours,[id number], 159, cm, 02/21/22 11:23:00 EDT, Height, 98.... Start Date: 03/18/22 Stop Date: 06/16/22 Status: OrderedbuPROPion 150 mg/24 hours (XL) oral tablet, extended release 1 tablet = 150 mg, By Mouth, Every 24 hours, for 30 days, # 30 tablet, 3 Refills, Acute 10/14/22 11:34:00 EST, 06/16/22 11:34:00 EDT, ER Tablet, [facility]/pharmacy #[id number], 1 tablet By Mouth Every 24 hours,[id number], 159, cm, 02/21/22 11:23:00 EDT, Height, 98.... Start Date: 06/16/22 Stop Date: 10/14/22 Status: Orderedhydroxychloroquine 200 mg oral tablet 2, tablet, By Mouth, Daily, # 60 tablet, Refills 3, Route to Pharmacy Electronically, [facility] STORE [id number], 159, cm, 06/28/21 15:10:00 EST, Height, 98.4, [...] information PersonnelName: Deneen So NP Address: Address: [address] [place] [address]-
--- OUTSIDE RECORDS SUMMARY | 2022-05-23 23:33 | XMS_ITS | Continuity of Care Document ---
:1990 Author Organization [facility] Address [address] [place] [address]- Care Team Providers Name Role Phone Deneen So NP Primary Care Physician Encounter [facility] Date(s): 08/09/20 - 08/16/20 [facility] [address] [place] [address]- Encounter Diagnosis Sleep apnea (Discharge Diagnosis) - 08/09/20 PTSD (post-traumatic stress disorder) (Discharge Diagnosis) - 08/09/20 Anxiety with depression (Discharge Diagnosis) - 08/09/20 Migraine (Discharge Diagnosis) - 08/09/20 Vitamin D deficiency (Discharge Diagnosis) - 08/09/20 Insomnia (Discharge Diagnosis) - 08/09/20 Pain in joints (Discharge Diagnosis) - 08/09/20 Acid reflux disease (Discharge Diagnosis) - 08/09/20 Rectal bleeding (Discharge Diagnosis) - 08/09/20 Encounter to establish care (Discharge Diagnosis) - 08/09/20 Attending Physician: Deneen So NP Allergies, Adverse Reactions, Alerts Substance Reaction Severity Status NKA Active Medications citalopram 20 mg oral tablet 20 mg, 1, tablet, By Mouth, Daily, # 30 tablet, Refills 0, Tot. Refills 0, Maintenance, 08/09/20 17:17:00 EST, Route to Pharmacy Electronically, [facility]/pharmacy #[id number], Partial fill upon patient request ifthe prescription [...] Sleep apnea(Confirmed) Active Vitamin D deficiency(Confirmed) Active Diagnosis Diagnosis Type Effective Dates Health Clinical Infor mant Status Service Sleep apnea Discharge 08/09/20 Diagnosis PTSD Discharge 08/09/20 (post-traumatic Diagnosis stress disorder) Anxiety with Discharge 08/09/20 depression Diagnosis Migraine Discharge 08/09/20 Diagnosis Vitamin D Discharge 08/09/20 deficiency Diagnosis Insomnia Discharge 08/09/20 Diagnosis Pain in joints Discharge 08/09/20 Diagnosis Acid reflux Discharge 08/09/20 disease Diagnosis Rectal bleeding Discharge 08/09/20 Diagnosis Encounter to Discharge 08/09/20 establish care Diagnosis Procedures Procedure Date Related Diagnosis Body Site Status Breast reduction Completed H/O: tubal ligation1 [place] [id number] Social History Social History Type Response Smoking Status Never (less than 100 in life time) entered on: 08/09/20 Sex
--- OUTSIDE RECORDS SUMMARY | 2022-05-23 23:34 | XMS_ITS | Continuity of Care Document ---
:1990 Author Organization [facility] Address [address] [place] [address]- Care Team Providers Name Role Phone Saray GARCIA, Deneen Primary Care Physician [place] [facility] [place] 02/21/22 - 02/28/22 [facility] [address] [place] [address]- Encounter Diagnosis Severe obesity (Discharge Diagnosis) - 02/20/22 Anxiety with depression (Discharge Diagnosis) - 02/21/22 Throat pain (Discharge Diagnosis) - 02/21/22 Attending Physician: Lisa Jones NP Referring Physician: Sal AMBRIZ, [place] Allergies, Adverse Reactions, Alerts No Known Allergies [...] 11:34:00 EDT, 03/18/22 11:34:00 EDT, ER Tablet, [facility]/pharmacy #[id number], 1 tablet By Mouth Every 24 hours,[id number], 159, cm, 02/21/22 11:23:00 EDT, Height, 98.... Start Date: 03/18/22 Stop Date: 06/16/22 Status: OrderedbuPROPion 150 mg/24 hours (XL) oral tablet, extended release 1 tablet = 150 mg, By Mouth, Every 24 hours, for 30 days, # 30 tablet, 1 Refills, Acute 03/18/22 11:34:00 EDT, 01/17/22 11:34:00 EDT, ER Tablet, [facility]/pharmacy #[id number], 1 tablet By Mouth Every 24 hours,[id number], 159, cm, 01/17/22 11:06:00 EDT, Height, 98.... Start Date: 01/17/22 Stop Date: 03/18/22 Status: Ordered Problem List Condition Effective Dates [...] Dates Health Clinical Infor mant Status Service Severe obesity Discharge 02/20/22 Diagnosis Anxiety with Discharge 02/21/22 depression Diagnosis Throat pain Discharge 02/21/22 Diagnosis Vital Signs Most recent to oldest [Reference Range]: 1 Height 159 cm (02/21/22 11:23 AM) Weight 103.8 kg (02/21/22 11:23 AM) Oxygen Saturation [94-100 %] 97 % (02/21/22 11:23 AM) Pulse Rate [55-90 bpm] 102 bpm *H* (02/21/22 11:23 AM) Body Mass Index [18.5-24.99] 41.06 *>HHI* (02/21/22 11:23 AM) Blood Pressure [90-138/55-84 mm Hg] 116/74 mm Hg (02/21/22 11:23 AM) Blood pressure sites Arm, left (02/21/22 11:23 AM) Social History Social History Type Response Smoking Status Never (less than 100 in life time) entered on: 08/09/20 Sex
--- OUTSIDE RECORDS SUMMARY | 2022-05-23 23:34 | XMS_ITS | Continuity of Care Document ---
:1990 Author Organization [facility] Adult Address [address] [place] [address]- Care Team Providers Name Role Phone Saray GARCIA, Deneen Primary Care Physician [facility]counter [facility] Date(s): 06/27/21 - 07/27/21 [facility] Adult [address] [place] [address]- Allergies, Adverse Reactions, Alerts Substance Reaction Severity [...] 0 Refills, Maintenance, 06/28/21 15:50:00 EST, Tablet, [facility]/pharmacy #[id number], Partial fill upon patient request [...]
--- OUTSIDE RECORDS SUMMARY | 2022-05-23 23:34 | XMS_ITS | Continuity of Care Document ---
:1990 Author Organization [facility] Adult Address [address] [place] [address]- Care Team Providers Name Role Phone Saray GARCIA, Deneen Primary Care Physician Encounter [facility] Date(s): 01/17/22 - 01/24/22 [facility] Adult [address] [place] [address]- Encounter Diagnosis Severe obesity (Discharge Diagnosis) - 01/18/22 Sleep apnea (Discharge Diagnosis) - 01/18/22 Throat pain (Discharge Diagnosis) - 01/18/22 Acid reflux disease (Discharge Diagnosis) - 01/18/22 Anxiety with depression (Discharge Diagnosis) - 01/18/22 Exercise-induced asthma (Discharge Diagnosis) - 01/18/22 Thyroid nodule (Discharge Diagnosis) - 01/18/22 Attending Physician: Not on Staff, Attending MD Allergies, Adverse Reactions, Alerts No Known Allergies [...] Papillomavirus Vaccine 06/03/13 Recorded Human Papillomavirus Vaccine 1/11/10 Recorded Human Papillomavirus Vaccine 02/17/08 Recorded Meningococcal [...] 11:34:00 EDT, 01/17/22 11:34:00 EDT, ER Tablet, [facility]/pharmacy #[id number], 1 tablet By Mouth Every 24 hours,[id number], 159, cm, 01/17/22 11:06:00 EDT, Height, 98.... Start Date: 01/17/22 Stop Date: 03/18/22 Status: OrderedProAir HFA 90 mcg/inh inhalation aerosol 2 puffs = 180 mcg, Inhalation, Every 4 hours, PRN as needed for wheezing, for 30 days, # 1 each, 0 Refills, Acute 02/16/22 11:34:00 EDT, 01/17/22 11:34:00 EDT, Inhaler, [facility]/pharmacy #[id number], 2 puffs Inhalation Every 4 hours,x30 [...] Active 13 mm Diagnosis Diagnosis Type Effective [facility] Clinical Infor mant Status Service Severe obesity Discharge 01/18/22 Diagnosis Sleep apnea Discharge 01/18/22 Diagnosis Throat pain Discharge 01/18/22 Diagnosis Acid reflux Discharge 01/18/22 disease Diagnosis Anxiety with Discharge 01/18/22 depression Diagnosis Exercise-induced Discharge 01/18/22 asthma Diagnosis Thyroid nodule Discharge 01/18/22 Diagnosis Vital Signs Most recent to oldest [Reference Range]: 1 2 Height 159 cm 159 cm (01/17/22 3:14 PM) (01/17/22 11:06 AM) Weight 105.6 kg 105.6 kg (01/17/22 3:14 PM) (01/17/22 11:06 AM) Oxygen Saturation [94-100 %] 98 % (01/17/22 11:06 AM) Pulse Rate [55-90 bpm] 104 bpm *H* (01/17/22 11:06 AM) Body Mass Index [18.5-24.99] 41.77 *>HHI* (01/17/22 11:06 AM) Blood Pressure [90-138/55-84 mm Hg] 122/76 mm Hg (01/17/22 11:06 AM) Temperature [96.8-100.4 DegF] 98.3 DegF (01/17/22 11:06 AM) Blood pressure sites Arm, right (01/17/22 11:06 AM) Social History Social History Type Response Smoking Status Never (less than 100 in life time) entered on: 08/09/20 Sex
--- OUTSIDE RECORDS SUMMARY | 2022-05-23 23:34 | XMS_ITS | Continuity of Care Document ---
:1990 Author Organization [facility] Rheumatology Address [address] [place] [address]- Care Team Providers Name Role Phone Deneen So NP Primary Care Physician Encounter [facility] Date(s): 01/18/22 - 02/18/22 [facility] Rhe[facility]ology [address] [place] [address]- Attending Physician: Stewart Johns MD Allergies, Adverse Reactions, Alerts No Known [...] 11:34:00 EDT, 01/17/22 11:34:00 EDT, ER Tablet, [facility]/pharmacy #[id number], 1 tablet By Mouth Every 24 hours,[id number], 159, cm, 01/17/22 11:06:00 EDT, Height, 98.... [...]
--- OUTSIDE RECORDS SUMMARY | 2022-05-23 23:34 | XMS_ITS | Continuity of Care Document ---
:1990 Author Organization [facility] Gastroenterology Address [address] [place] [address]- Care Team Providers Name Role Phone Saray GARCIA, Deneen Primary Care Physician Encounter [facility] Date(s): 10/14/20 - 11/13/20 [facility] [address] [place] [id number] Allergies, Adverse Reactions, Alerts Substance Reaction Severity [...] 08/09/20 17:17:00 EST, Route to Pharmacy Electronically, [facility]/pharmacy #[id number], Partial fill upon patient request ifthe prescription [...]
--- OUTSIDE RECORDS SUMMARY | 2022-05-23 23:34 | XMS_ITS | Continuity of Care Document ---
:1990 Author Organization [facility] Adult Address [address] [place] [address]- Care Team Providers Name Role Phone Deneen So NP Primary Care Physician Encounter [facility] Date(s): 06/28/21 - 07/05/21 [facility] Adult [address] [place] [address]- Encounter Diagnosis Neck pain (Discharge Diagnosis) - 06/28/21 Localized swelling, mass, and lump of head (Discharge Diagnosis) - 06/28/21 Nodular thyroid disease (Discharge Diagnosis) - 06/28/21 Attending Physician: Deneen So NP Allergies, Adverse [...] 0 Refills, Maintenance, 06/28/21 15:50:00 EST, Tablet, [facility]/pharmacy #[id number], Partial fill upon patient [...] Hepatic steatosis(Confirmed) Active Vitamin D deficiency(Confirmed) Active Diagnosis Diagnosis Type Effective Dates Health Status Clinical In formant Service Neck pain Discharge 06/28/21 Diagnosis Localized Discharge 06/28/21 swelling, mass, Diagnosis and lump of head Nodular thyroid Discharge 06/28/21 disease Diagnosis Vital Signs Most recent to oldest [Reference Range]: 1 Height 159 cm (06/28/21 3:10 PM) Weight 104.9 kg (06/28/21 3:10 PM) Oxygen Saturation [94-100 %] 98 % (06/28/21 3:10 PM) Pulse Rate [55-90 bpm] 93 bpm *H* (06/28/21 3:10 PM) Body Mass Index [18.5-24.99] 41.49 *>HHI* (06/28/21 3:10 PM) Blood Pressure [90-138/55-84 mm Hg] 135/80 mm Hg (06/28/21 3:10 PM) Blood pressure sites Arm, right (06/28/21 3:10 PM) Social History Social History Type Response Smoking Status Never (less than 100 in life time) entered on: 08/09/20 Sex
--- OUTSIDE RECORDS SUMMARY | 2022-05-23 23:34 | XMS_ITS | Continuity of Care Document ---
:1990 Author Organization [facility] Address Unavailable , Care Team Providers Name Role Phone Deneen So NP Primary Care Physician Encounter [facility] Date(s): 05/19/21 - 06/18/21 [facility] Attending Physician: Rylie Little Admitting Physician: AdmtrRylie Referring Physician: Admtr, Trent8 Allergies, Adverse Reactions, Alerts Substance Reaction Severity [...]
--- OUTSIDE RECORDS SUMMARY | 2022-05-23 23:34 | XMS_ITS | Continuity of Care Document ---
:1990 Author Organization [facility] Rheumatology Address [address] [place] [address]- Care Team Providers Name Role Phone Deneen So NP Primary Care Physician Encounter [facility] Date(s): 05/16/21 - 06/15/21 [facility] Rheumatology [address] [place] [id number] Allergies, Adverse Reactions, Alerts Substance Reaction [...]
--- OUTSIDE RECORDS SUMMARY | 2022-05-23 23:34 | XMS_ITS | Continuity of Care Document ---
:1990 Author Organization [facility] Adult Address [address] [place] [address]- Care Team Providers Name Role Phone Saray GARCIA, Deneen Primary Care Physician Encounter [facility] Date(s): 03/29/22 - 04/28/22 [facility] Adult [address] [place] [address]- Allergies, Adverse Reactions, Alerts No Known Allergies [...] 11:34:00 EDT, 03/18/22 11:34:00 EDT, ER Tablet, [facility]/pharmacy #[id number], 1 tablet By Mouth Every 24 hours,[id number], 159, cm, 02/21/22 11:23:00 EDT, Height, 98.... Start Date: 03/18/22 Stop Date: 06/16/22 Status: OrderedbuPROPion 150 mg/24 hours (XL) oral tablet, extended release 1 tablet = 150 mg, By Mouth, Every 24 hours, for 30 days, # 30 tablet, 3 Refills, Acute 10/14/22 11:34:00 EST, 06/16/22 11:34:00 EDT, ER Tablet, [facility]/pharmacy #[id number], 1 tablet By Mouth Every 24 hours,[id number], 159, cm, 02/21/22 11:23:00 EDT, Height, 98.... Start Date: 06/16/22 Stop Date: 10/14/22 Status: Orderedhydroxychloroquine 200 mg oral tablet 2, tablet, By Mouth, Daily, # 60 tablet, Refills 3, Route to Pharmacy Electronically, [id number], 159, cm, 06/28/21 15:10:00 EST, Height, 98.4, kg, 10/20/20 7:15:00 EST, Dry Weight Start Date: 10/29/21 Status: Ordered Problem List Condition Effective Dates [...] in life time) entered on: 08/09/20 Sex Care Team PersonnelName: Deneen So NP Address: [address] [place] [address] Adult [place], [place] [address]
--- OUTSIDE RECORDS SUMMARY | 2022-05-23 23:34 | XMS_ITS | Continuity of Care Document ---
:1990 Author Organization [facility] Adult Address [address] [place] [address]- Care Team Providers Name Role Phone Saray GARCIA, Deneen Primary Care Physician [facility]counter [facility] Date(s): 06/28/21 - 08/31/21 [facility] Adult [address] [place] [address]- Attending Physician: Deneen So NP Referring Physician: Jersey Huang MD Allergies, Adverse Reactions, Alerts No Known [...]
--- OUTSIDE RECORDS SUMMARY | 2022-05-23 23:34 | XMS_ITS | Continuity of Care Document ---
:1990 Author Organization [facility] Adult Address [address] [place] [address]- Care Team Providers Name Role Phone Saray GARCIA, Deneen Primary Care Physician Encounter [facility] Date(s): 01/03/21 - 02/02/21 [facility] Adult [address] [place] [address]- Allergies, Adverse Reactions, Alerts Substance Reaction Severity [...] 08/09/20 17:17:00 EST, Route to Pharmacy Electronically, [facility]/pharmacy #[id number], Partial fill upon patient request ifthe prescription [...]
--- OUTSIDE RECORDS SUMMARY | 2022-05-23 23:34 | XMS_ITS | Continuity of Care Document ---
:1990 Author Organization [facility] Adult Address [address] [place] [address]- Care Team Providers Name Role Phone Saray GARCIA, Deneen Primary Care Physician Encounter [facility] Date(s): 10/27/21 - 11/26/21 [facility] Adult [address] [place] [address]- Allergies, Adverse Reactions, Alerts No Known Allergies [...] 0 Refills, Maintenance, 06/28/21 15:50:00 EST, Tablet, [facility]/pharmacy #[id number], Partial fill upon [...]
--- OUTSIDE RECORDS SUMMARY | 2022-05-23 23:34 | XMS_ITS | Continuity of Care Document ---
:[address] [facility] Adult Address [address] [place] [address]- Care Team Providers Name Role Phone Deneen So NP Primary Care Physician Encounter [facility] Date(s): 08/01/21 - 08/31/21 [facility] Adult [address] [place] [address]- Attending Physician: AdmRylie sewell Admitting Physician: Admtr, [...]
--- OUTSIDE RECORDS SUMMARY | 2022-05-23 23:34 | XMS_ITS | Continuity of Care Document ---
:1990 Author Organization [facility] Address [address] [place] [address] Drive [address] [place] [address]- Care Team Providers Name Role Phone Saray GARCIA, Deneen Primary Care Physician Encounter [facility] Date(s): 09/06/20 - 10/06/[address] [place] [id number] Allergies, Adverse Reactions, Alerts Substance Reaction Severity Status NKA Active Medications citalopram 20 mg oral tablet 20 mg, 1, tablet, By Mouth, Daily, # 30 tablet, Refills 0, Tot. Refills 0, Maintenance, 08/09/20 17:17:00 EST, Route to Pharmacy Electronically, [facility]/pharmacy #[id number], Partial fill upon patient request ifthe prescription is for a schedule II opioid drug. Start Date: 08/09/20 Status: OrderedPlenvu oral powder for reconstitution See Instructions, Complete on day before procedure, # 1,000 mL, 0 Refills, Maintenance, 09/30/20 16:01:00 EST, [facility]/pharmacy #[id number], Partial fill upon patient request [...]
--- OUTSIDE RECORDS SUMMARY | 2022-05-23 23:34 | XMS_ITS | Continuity of Care Document ---
:1990 Author Organization [facility] Endocrinology and [facility] Address [address] [place] [address]- Care Team Providers Name Role Phone Deneen So NP Primary Care Physician Encounter [facility] Date(s): 11/03/21 - 01/06/22 [facility] Endocrinology and Diabetes [address] [place] [id number] Attending Physician: Russ Valenzuela MD Admitting [...]
--- OUTSIDE RECORDS SUMMARY | 2022-05-23 23:34 | XMS_ITS | Continuity of Care Document ---
:1990 Author Organization [facility] Adult Address [address] [place] [address]- Care Team Providers Name Role Phone Deneen So NP Primary Care Physician Encounter [facility] Date(s): 11/02/21 - 11/09/21 [facility] Adult [address] [place] [address]- Encounter Diagnosis LUQ pain (Discharge Diagnosis) - 11/02/21 Attending Physician: Deneen So NP Allergies, Adverse [...] mm Diagnosis Diagnosis Type Effective Dates Health Status Clinical Serv ice Informant LUQ pain Discharge 11/02/21 Diagnosis Vital Signs Most recent to oldest [Reference Range]: 1 Height 159 cm (11/02/21 10:57 AM) Weight 105.3 kg (11/02/21 10:57 AM) Oxygen Saturation [94-100 %] 99 % (11/02/21 10:57 AM) Pulse Rate [55-90 bpm] 78 bpm (11/02/21 10:57 AM) Body Mass Index [18.5-24.99] 41.65 *>HHI* (11/02/21 10:57 AM) Blood Pressure [90-138/55-84 mm Hg] 119/73 mm Hg (11/02/21 10:57 AM) Blood pressure sites Arm, right (11/02/21 10:57 AM) Social History Social History Type Response Smoking Status Never (less than 100 in life time) entered on: 08/09/20 Sex
--- OUTSIDE RECORDS SUMMARY | 2022-05-23 23:34 | XMS_ITS | Continuity of Care Document ---
:1990 Author Organization [facility] Adult Address [address] [place] [address]- Care Team Providers Name Role Phone Saray GARCIA, Deneen Primary Care Physician [facility]counter [facility] Date(s): 03/17/21 - 04/16/21 [facility] Adult [address] [place] [address]- Allergies, Adverse Reactions, Alerts Substance Reaction Severity [...] EST, Route to Pharmacy Electronically, [facility]/pharmacy #[id number], Partial fill upon patient request ifthe prescription [...]
--- OUTSIDE RECORDS SUMMARY | 2022-05-23 23:34 | XMS_ITS | Continuity of Care Document ---
:1990 Author Organization [facility] Gastroenterology Address [address] [place] [address]- Care Team Providers Name Role Phone Saray GARCIA, Deneen Primary Care Physician Encounter [facility] Date(s): 09/07/20 - 11/25/20 [facility] [address] [place] [address] Attending Physician: Parish Hightower MD Admitting Physician: Parish Hightower MD Referring Physician: Shelby Chang NP Allergies, Adverse Reactions, Alerts Substance Reaction [...] 08/09/20 17:17:00 EST, Route to Pharmacy Electronically, [facility]/pharmacy #[id number], Partial fill upon patient request ifthe prescription [...]
--- OUTSIDE RECORDS SUMMARY | 2022-05-23 23:34 | XMS_ITS | Continuity of Care Document ---
:1990 Author Organization [facility] Adult Address [address] [place] [address]- Care Team Providers Name Role Phone Saray GARCIA, Deneen Primary Care Physician Encounter [facility] Date(s): 10/31/21 - 11/30/21 [facility] Adult [address] [place] [address]- Allergies, Adverse Reactions, Alerts No Known Allergies [...] Refills, Maintenance, 06/28/21 15:50:00 EST, Tablet, [facility]/pharmacy #[id number], Partial fill upon patient request [...]
--- OUTSIDE RECORDS SUMMARY | 2022-05-23 23:34 | XMS_ITS | Continuity of Care Document ---
:1990 Author Organization [facility] Adult Address [address] [place] [address]- Care Team Providers Name Role Phone Deneen So NP Primary Care Physician Encounter [facility] Date(s): 11/09/21 - 11/16/21 [facility] Adult [address] [place] [address]- Encounter Diagnosis Chest wall pain (Discharge Diagnosis) - 11/09/21 Throat pain (Discharge Diagnosis) - 11/09/21 Attending Physician: Deneen So NP Allergies, Adverse [...] Dates Health Status Clinical In formant Service Chest wall pain Discharge 11/09/21 Diagnosis Throat pain Discharge 11/09/21 Diagnosis Vital Signs Most recent to oldest [Reference Range]: 1 Height 159 cm (11/09/21 10:33 AM) Weight 106.6 kg (11/09/21 10:33 AM) Oxygen Saturation [94-100 %] 100 % (11/09/21 10:33 AM) Pulse Rate [55-90 bpm] 88 bpm (11/09/21 10:33 AM) Body Mass Index [18.5-24.99] 42.17 *>HHI* (11/09/21 10:33 AM) Blood Pressure [90-138/55-84 mm Hg] 124/78 mm Hg (11/09/21 10:33 AM) Blood pressure sites Arm, right (11/09/21 10:33 AM) Weight Obtained Via Standing scale (11/09/21 10:33 AM) Social History Social History Type Response Smoking Status Never (less than 100 in life time) entered on: 08/09/20 Sex
--- OUTSIDE RECORDS SUMMARY | 2022-05-23 23:34 | XMS_ITS | Continuity of Care Document ---
:1990 Author Organization [facility] Address [address] [place] [address]- Care Team Providers Name Role Phone Deneen So NP Primary Care Physician Encounter [facility] Date(s): 01/05/21 - 03/24/21 [facility] [address] [place] [id number] Attending Physician: Snehal Sandhu MD Referring Physician: Deneen So NP Allergies, [...] 08/09/20 17:17:00 EST, Route to Pharmacy Electronically, [facility]/pharmacy #[id number], Partial fill upon patient request ifthe prescription [...]
--- OUTSIDE RECORDS SUMMARY | 2022-05-23 23:34 | XMS_ITS | Continuity of Care Document ---
:1990 Author Organization [facility] Rheumatology Address [address] [place] [address]- Care Team Providers Name Role Phone Saray GARCIA, Deneen Primary Care Physician Encounter [facility] Date(s): 10/15/20 - 02/12/21 [facility] Rheumatology [address] [place] [id number] Attending Physician: Stewart Johns MD Allergies, Adverse [...] 08/09/20 17:17:00 EST, Route to Pharmacy Electronically, [facility]/pharmacy #[id number], Partial fill upon patient request ifthe prescription [...]
--- OUTSIDE RECORDS SUMMARY | 2022-05-23 23:34 | XMS_ITS | Continuity of Care Document ---
:1990 Author Organization [facility] Adult Address [address] [place] [address]- Care Team Providers Name Role Phone Saray GARCIA, Deneen Primary Care Physician [facility] Date(s): 03/31/22 - 04/30/22 [facility] Adult [address] [place] [address]- Allergies, Adverse Reactions, Alerts No Known Allergies [...] 11:34:00 EDT, 03/18/22 11:34:00 EDT, ER Tablet, [facility]/pharmacy #[id number], 1 tablet By Mouth Every 24 hours,[id number], 159, cm, 02/21/22 11:23:00 EDT, Height, 98.... Start Date: 03/18/22 Stop Date: 06/16/22 Status: OrderedbuPROPion 150 mg/24 hours (XL) oral tablet, extended release 1 tablet = 150 mg, By Mouth, Every 24 hours, for 30 days, # 30 tablet, 3 Refills, Acute 10/14/22 11:34:00 EST, 06/16/22 11:34:00 EDT, ER Tablet, [facility]/pharmacy #[id number], 1 tablet By Mouth Every 24 hours,[id number], 159, cm, 02/21/22 11:23:00 EDT, Height, 98.... Start Date: 06/16/22 Stop Date: 10/14/22 Status: Orderedhydroxychloroquine 200 mg oral tablet 2, tablet, By Mouth, Daily, # 60 tablet, Refills 3, Route to Pharmacy Electronically, [facility] [id number], 159, cm, 06/28/21 15:10:00 EST, Height, 98.4, [...] Care Team PersonnelName: Deneen So NP Address: [address] [place] [id number]
--- OUTSIDE RECORDS SUMMARY | 2022-05-23 23:35 | XMS_ITS | Continuity of Care Document ---
:1990 Author Organization [facility] Adult Address [address] [place] [address]- Care Team Providers Name Role Phone Saray GARCIA, Deneen Primary Care Physician [facility]counter [facility] Date(s): 03/27/22 - 04/26/22 [facility] Adult [address] [place] [address]- Allergies, Adverse Reactions, Alerts No Known Allergies [...] 11:34:00 EDT, 03/18/22 11:34:00 EDT, ER Tablet, [facility]/pharmacy #[id number], 1 tablet By Mouth Every 24 hours,[id number], 159, cm, 02/21/22 11:23:00 EDT, Height, 98.... Start Date: 03/18/22 Stop Date: 06/16/22 Status: OrderedbuPROPion 150 mg/24 hours (XL) oral tablet, extended release 1 tablet = 150 mg, By Mouth, Every 24 hours, for 30 days, # 30 tablet, 3 Refills, Acute 10/14/22 11:34:00 EST, 06/16/22 11:34:00 EDT, ER Tablet, [facility]/pharmacy #[id number], 1 tablet By Mouth Every 24 hours,[id number], 159, cm, 02/21/22 11:23:00 EDT, Height, 98.... Start Date: 06/16/22 Stop Date: 10/14/22 Status: Orderedhydroxychloroquine 200 mg oral tablet 2, tablet, By Mouth, Daily, # 60 tablet, Refills 3, Route to Pharmacy Electronically, [facility] [id number], 159, cm, 06/28/21 15:10:00 EST, Height, 98.4, [...] Care Team PersonnelName: Deneen So NP Address: [address] [place] [id number]
--- OUTSIDE RECORDS SUMMARY | 2022-05-23 23:35 | XMS_ITS | Continuity of Care Document ---
:1990 Author Organization [facility] End[facility]inology and [facility] Address [address] [place] [address]- Care Team Providers Name Role Phone Deneen So NP Primary Care Physician [facility]counter [facility] Date(s): 11/02/21 - 12/02/21 [facility] Endocrinology and Diabetes [address] [place] [id number] Allergies, Adverse Reactions, Alerts No [...] 0 Refills, Maintenance, 06/28/21 15:50:00 EST, Tablet, [facility]/pharmacy #[id number], Partial fill upon patient request if [...]
--- OUTSIDE RECORDS SUMMARY | 2022-05-23 23:35 | XMS_ITS | Continuity of Care Document ---
:1990 Author Organization [facility]monary Medicine Address [address] [address]- Care Team Providers Name Role Phone Deneen So NP Primary Care Physician Encounter [facility] Date(s): 03/12/22 - 04/11/22 [facility] [address] [place] [id number] Allergies, Adverse Reactions, Alerts No Known [...] 11:34:00 EDT, 03/18/22 11:34:00 EDT, ER Tablet, [facility]/pharmacy #[id number], 1 tablet By Mouth Every 24 hours,[id number], 159, cm, 02/21/22 11:23:00 EDT, Height, 98.... Start Date: 03/18/22 Stop Date: 06/16/22 Status: OrderedbuPROPion 150 mg/24 hours (XL) oral tablet, extended release 1 tablet = 150 mg, By Mouth, Every 24 hours, for 30 days, # 30 tablet, 3 Refills, Acute 10/14/22 11:34:00 EST, 06/16/22 11:34:00 EDT, ER Tablet, [facility]/pharmacy #[id number], 1 tablet By Mouth Every 24 hours,[id number], 159, cm, 02/21/22 11:23:00 EDT, Height, 98.... Start Date: 06/16/22 Stop Date: 10/14/22 Status: Orderedhydroxychloroquine 200 mg oral tablet 2, tablet, By Mouth, Daily, # 60 tablet, Refills 3, Route to Pharmacy Electronically, [facility] [id number], 159, cm, 06/28/21 15:10:00 EST, Height, 98.4, [...] Care Team PersonnelName: Deneen So NP Address: [address] [place] [id number]
--- OUTSIDE RECORDS SUMMARY | 2022-05-23 23:35 | XMS_ITS | Continuity of Care Document ---
:1990 Author Organization [facility] Address [address] [place] [address] Drive [address] [place] [id number]- Care Team Providers Name Role Phone Saray GARCIA, Deneen Primary Care Physician Encounter [facility] Date(s): 09/06/20 - 09/13/[address] [place] [id number] Attending Physician: Shelby Chang NP Referring Physician: Deneen So NP Allergies, Adverse Reactions, Alerts Substance Reaction Severity Status NKA Active Medications citalopram 20 mg oral tablet 20 mg, 1, tablet, By Mouth, Daily, # 30 tablet, Refills 0, Tot. Refills 0, Maintenance, 08/09/20 17:17:00 EST, Route to Pharmacy Electronically, [facility]/pharmacy #[id number], Partial fill upon patient request ifthe prescription [...]
--- OUTSIDE RECORDS SUMMARY | 2022-05-23 23:35 | XMS_ITS | Continuity of Care Document ---
:1990 Author Organization [facility] Address [address] [place] [id number]- Care Team Providers Name Role Phone Deneen So NP Primary Care Physician Encounter [facility] Date(s): 11/04/21 - 12/04/21 [facility] [address] [place] [id number] Allergies, Adverse Reactions, Alerts [...] 0 Refills, Maintenance, 06/28/21 15:50:00 EST, Tablet, [facility]/pharmacy #[id number], Partial fill upon patient request if [...]
--- OUTSIDE RECORDS SUMMARY | 2022-05-23 23:35 | XMS_ITS | Continuity of Care Document ---
:1990 Author Organization [facility] Address [address] [place] [address]- Care Team Providers Name Role Phone Saray GARCIA, Deneen Primary Care Physician Encounter [facility] Date(s): 06/09/21 - 07/09/21 [facility] [address] [place] [address]- Allergies, Adverse Reactions, Alerts Substance Reaction Severity [...] 0 Refills, Maintenance, 06/28/21 15:50:00 EST, Tablet, [facility]/pharmacy #[id number], Partial fill upon [...]
--- OUTSIDE RECORDS SUMMARY | 2022-05-23 23:35 | XMS_ITS | Continuity of Care Document ---
:1990 Author Organization [facility] Care Team Providers Name Role Phone [facility] Unavailable Unavailable Problems Combined list of problems from Department of Defense and Veterans Affairs facilities. It does not include entries that were removed or entered in error. Problem Status Onset Problem Type Date of Comments Source Date Resolution Homeless family Active Condition [facility] Inadequate housing Active Condition [facility] Need For Inactive Condition DoD Vaccination Against Influenza pelvic fracture Active Condition DoD stress joint pain, Active Condition DoD localized in the hip contact dermatitis Inactive Condition D oD anemia Active Condition DoD normochromic, normocytic joint pain, Inactive Condition DoD localized in the knee visit for: Inactive Condition DoD screening exam hematological disorders closed stress Inactive Condition DoD fracture of tibia pharyngitis acute Inactive Condition Do D upper respiratory Inactive Condition Do D infection acute visit for: Inactive Condition DoD occupational health / fitness exam common migraine Inactive Condition DoD without aura cough Inactive Condition DoD allergic rhinitis Active Condition Do D migraine headache Active Condition Do D epistaxis Inactive Condition DoD overweight Active Condition DoD visit for: Inactive Condition DoD screening exam thyroid disorders visit for: Inactive Condition DoD screening exam iron deficiency anemia stress fracture Active Condition DoD compression Active Condition DoD arthralgia - knee / patella / tibia / fibula Need For Inactive Condition DoD Vaccination Against Viral Diseases Need For Inactive Condition DoD Vaccination Chickenpox (Active) Need For Inactive Condition DoD Vaccination Against Bacterial Diseases Meningococcal Need For Inactive Condition DoD Vaccination Polio Need For Inactive Condition DoD Vaccination Against DTP Need For Inactive Condition DoD Vaccination Hepatitis A Need For Inactive Condition DoD Vaccination Against Bacterial Diseases visit for: ears / Active Condition Do D hearing exam Patient Education - Active Condition DoD Injury Prevention assessment of Active Condition DoD patient condition work-related astigmatism Active Condition DoD refractive error - Active Condition D oD myopia visit for: Active Condition DoD examination of subpopulation Test Inactive Condition DoD Negative Test Inactive Condition DoD Blood Typing Inactive Condition DoD visit for: Inactive Condition DoD screening exam pulmonary tuberculosis Diagnosis: Active Diagnosis IVAN[facility] ICD-10-CM Z23 [facility] Encounter for immunizationwith Provider Comments: Encounter for Immunization Allergies, Adverse Reactions, Alerts Combined list of allergies from Department of Defense and Veterans Affairs facilities. It does not include entries that were removed or entered in error. Substance Category Reaction Severity Reaction Status Date Comments S ource type Reported No Known Drug Drug active Gen Allergies allergy allergy 2 Rosalina Judge [place], [place] Immunizations Combined list of available immunizations from the Department of Defense and Veterans Affairs facilities. Immunization Series Date Administered Site Reaction Lot CVX Drug St atus Comments Source Given By Number Code Full Time Staff Interpreter COVID-19 2 complet MOD; WO RCEST (MODERNA), 2020 ed [id number]; [facility] MRNA, LNP-S, 02 PF, 100 1 MCG/0.5 ML DOSE COVID-19 1 complet MOD; WO RCEST (MODERNA), 2020 ed [id number]; [facility] MRNA, LNP-S, 02 PF, 100 1 MCG/0.5 ML DOSE TDAP complet [facility] 2013 ed [facility] HPV9 complet [facility] 2012 ed [facility] influenza 1 [id number] MedImmune, complet i nfluenza DoD virus 2012 Inc. (MED) ed virus vaccine, vaccine, live, live, attenuated, attenuat e for d, for intranasal intranasa use l use varicella 2 [id number] 21 Merck (MSD) complet varicella DoD virus vaccine 2011 ed virus vaccine poliovirus 1 [id number] Sanofi complet polio viru DoD vaccine, 2012 Pasteur (PMC) ed s inactivated vaccine, inactivat ed varicella 1 [id number] 21 Merck (MSD) complet varicella DoD virus vaccine 2011 ed virus vaccine hepatitis A 1 [id number] SmithKline comple t hepatitis DoD vaccine, 2011 8AA (SKB) ed A adult dosage vaccine , adult dosage meningococcal 1 [id number] Sanofi complet meningoco DoD polysaccharid 2011 Pasteur (PMC) ed ccal e (groups A, polysac ch C, Y and aride W-135) (groups diphtheria A, C, Y toxoid and conjugate W-135) vaccine diphtheri (MCV4P) a toxoid conjugate vaccine (MCV4P) tetanus 1 11/29/ [id number] [facility] henrietta adams DoD toxoid, 2011 6DA (SKB) ed toxoid, reduced reduced diphtheria diphtheri toxoid, and a toxoid , acellular and pertu is acellular vaccine, pertussis adsorbed vaccine, adsorbed Adenovirus, 1 11/29/ [id number] Munoz complet Yun noviru DoD type 4 and 2011 7 Laboratories ed s, type 4 type 7, live, (BRR) and ty pe oral 7, live, oral measles, 1 11/28/ UNK 03 Unknown (UNK) Not me asles, DoD mumps and 2012 Given mumps and rubella virus rubell a vaccine virus vaccine hepatitis B 1 11/28/ UNK 43 Unknown (UNK) Not hepatitis DoD vaccine, 2011 Given B adult dosage vaccine , adult dosage Encounters Combined list of: 1) Encounters from Department of Veterans Affairs facilities going back up to the last 18 months. 2) Encounters from the Department of Defense facilities going back up to 280 months. Location Location Encounter Encounter Reason Attending ADM MI Stat us Disposition Source Details Type Number For Provider Date Date Visit OUTPATIENT [id number] WHITLEY, 11/27 Release d w/o General Day 1 MAY M. Limitations MATI [address]([place]P [place] Initial Entry) OUTPATIENT [id number] MARTINE, 11/27 Released w/o General Limitations MATI Mast(IEP Optomet ry) OUTPATIENT [id number] moreno GIPSON, 11/28 Release d w/o General ERIN M. Limitations MATI Temple(IEP Hearing Conserv ation Exam) OUTPATIENT [id number] ANGI, 11/29 Release d w/o General day3 MAY M. Limitations MATI [address](IEP [place] Initial Entry) OUTPATIENT [id number] B knee 12/11 Rele ased General pain , JOSE GUADALUPE with Abdullahi Work/Duty [place] Limitations MATI Caceres(MAT/ Athleti c Train Prev Study) OUTPATIENT [id number] B knee 12/12 Rele ased General pain , JOSE GUADALUPE with Abdullahi f/u Work/Duty [place] Lim[place] [facility] [place]/ Athlet[place] c Train Prev Study) OUTPATIENT [id number] B knee 12/17 Rele ased General pain , with Abdullahi Work/Duty [place] [facility] [place] Train Prev Study) OUTPATIENT [id number] nose MARTINEZ, 12/20 12/20 Released General bleeds LUIS A /2011 with Abdullahi Work/Duty [place] Limitations [facility] [place] OUTPATIENT [id number] FFD PAVIC, 12/24 12/24 Released General MIGRAIN JORY with Abdullahi ES/EPIS Work/Duty [place] TAXIS Limitations [facility] [place]) OUTPATIENT [id number] B knee 12/25 Rele ased General f/u , JOSE GUADALUPE with Abdullahi Work/Duty [place] [facility] [place] Athleti c Train Prev Study) OUTPATIENT [id number] F/U SISANTE, 01/04 01/04 Release d w/o General MIGRAIN ASAD /2011 Limitations Le [address] E [place] [facility] [place]C-[place] C [place] OUTPATIENT [id number] B knee 01/09 Rele ased w/o General f/u , JOSE GUADALUPE Limitations [address] [place] [facility] [place]/ Athleti c Train Prev Study) OUTPATIENT [id number] L-LEG DOERJOSÉ MIGUELEN, 01/19 01/19 Releas ed w/o General RASH DAVID /2011 Limitations Abdullahi [place] [facility] [place] OUTPATIENT [id number] F148 V GARCIA, 02/04 Released w/o General ORIN A Limitations Abdullahi [place] [facility] [place] OUTPATIENT [id number] R CLEO 02/05 Relea sed General hip/pel , with Abdullahi vis Work/Duty [place] Limitations [facility] [place] Train Prev Study) OUTPATIENT [id number] R MARLEN HERNÁNDEZ, 02/12 Relea sed General SFX REGINO with Abdullahi ZAIN Work/Duty [place] Limitations [facility] [place] Train Prev Study) OUTPATIENT [id number] UCL F/U IER 03/25 Rel eased General R IPR , JOSE GUADALUPE with Abdullahi SFx Work/Duty [place] Limitations [facility] [place] Train Prev Study) OUTPATIENT [id number] IPR SFx IER 03/26 Rel eased General therex , JOSE GUADALUPE with Abdullahi Work/Duty [place] Limitations [facility] [place] Train Prev Study) OUTPATIENT [id number] R IPR IER 03/27 Relea sed General SFx , with Abdullahi Therex Work/Duty [place] Limitations [facility] [place] Athlet[place] Train Prev Study) OUTPATIENT [id number] IPR SFx [place] 03/28 Rel eased General therex , JOSE GUADALUPE with Abdullahi Work/Duty [place] Limitations [facility] [place] Train Prev Study) OUTPATIENT [id number] IPR SFx 03/29 Rel eased General therex , JOSE GUADALUPE with Abdullahi Work/Duty [place] Limitations [facility] [place] Train Prev Study) OUTPATIENT [id number] IPR SFx IER 04/01 Rel eased General Therex , JOSE GUADALUPE with Abdullahi Work/Duty [place] Limitations [facility] [place] Train Prev Study) OUTPATIENT [id number] IPR SFx IER 04/02 Rel eased General Therex , JOSE GUADALUPE with Abdullahi Work/Duty [place] Limitations [facility] [place] Train Prev Study) OUTPATIENT [id number] IPR SFx IER 04/04 Rel eased General Therex , JOSE GUADALUPE with Abdullahi Work/Duty [place] [facility] [place] Train Prev Study) OUTPATIENT [id number] IPR SFx [place] 04/08 Rel eased General therex , JOSE GUADALUPE with Abdullahi Work/Duty [place] Limitations [facility] [place] Train Prev Study) OUTPATIENT [id number] IPR SFx BROOKSH04/11 Rel eased General Rehab , with Abdullahi Work/Duty [place] Limitations [facility] [place] Train Prev Study) OUTPATIENT [id number] IPR SFx ARARAT04/16 Rel eased General therex , with Abdullahi Work/Duty [place] Limitations [facility] [place] Train Prev Study) OUTPATIENT [id number] [facility]04/18 Relea sed General Therapy , with Abdullahi Work/Duty [place] Limitations [facility] [place] Athlet[place] Train Prev Study) OUTPATIENT [id number] Notes WHITLEY, 04/19 Released w/o General Entered MAY Rody Limitations Holger nard by: GRACIELA Tucker [facility] MY Apr Abdullahi 2011 [place], [address] [place](IEP ------- [place] ------- s ------- Initial ------- Entry) -- F CO MIST OUTPATIENT [id number] [facility] 04/22 Relea sed General Therapy , with Abdullahi Work/Duty [place] Limitations [facility] [place] Athleti c Train Prev Study) OUTPATIENT [id number] [facility]04/24 Relea sed General Therapy , with Abdullahi Work/Duty [place] Limitations [facility] [place] Athlet[place] c Train Prev Study) OUTPATIENT [id number] [facility]04/30 Relea sed General therapy , with Abdullahi Work/Duty [place] Limitations [facility] [place] Train Prev Study) OUTPATIENT [id number] R IPR 05/01 Relea sed w/o General SFx f/u , Limitations Holger nard [place] [facility] [place] Train Prev Study) OUTPATIENT [id number] pelvic ZEKE, 05/16 05/16 Released General pain ZAIN D with Abdullahi Work/Duty [place] Limitations [facility] MATI Galan(C-TM C Er Module) OUTPATIENT [id number] Notes [facility] 05/22 Relea sed General Entered , with Abdullahi by: Work/Duty Alfie [facility] Limitations [facility] [place] [employer] [employer] Abdullahi [place]/ 635 Athleti ------- c Train ------- Prev ------- Study) ------- -- Pelvis f/u TELE [id number] Notes EDGAR, 05/22 Gene ral CONSULT Entered Abdullahi by: ZAIN Judge [facility] [place] [employer] Abdullahi [place](MAT/ 37 Athleti ------- c Train ------- Prev ------- Study) ------- -- Pelvis ADM 08030-5.63 Perez Hurley 12/11 WO RCEST SARSCOV2 [id number] is: ANDREW ER CBO C 100MCG/0.5 59 ICD-10- ML2ND CM Z23 Encount er for immuniz ation<b r/>with Provide r Comment s: Encount er for Immuniz ation Procedures Combined list of: 1) Procedures from Department of Veterans Affairs facilities going back up to the last 18 months, not all [facility] non-surgical procedures are included; 2) All procedures from the Department of Defense facilities. Procedure Procedure Type Code Date Perfomer Comments Sour e Athletic Training 05/22/20 [facility] Re-evaluation 12 JOSE GUADALUPE Athletic Training 05/03/20 [facility] Re-evaluation 12 JOSE GUADALUPE Modalities Modalities 67668 04/30/20 [facility] Cryotherapy Cold Cryotherapy Cold 12 JOSE GUADALUPE Packs Packs Physical Therapy: Physical Therapy: 44346 04/30/20 [facility] e flowsheet [facility] ___ Se ion ___ Session 12 JOSE GUADALUPE Segments, 15 Segments, 15 Minutes Each Minutes Each Modalities Modalities 04929 04/24/20 [facility] Cryotherapy Cold Cryotherapy Cold 12 JOSE GUADALUPE Packs Packs Mobilization Soft Mobilization Soft 84538 04/24/20 [facility] Ti ue Tissue 12 JOSE GUADALUPE Physical Therapy: Physical Therapy: 30409 04/24/20 [facility] e flowsheet [facility] ___ Se ion ___ Session 12 JOSE GUADALUPE Segments, 15 Segments, 15 Minutes Each Minutes Each Mobilization Soft Mobilization Soft 54613 04/23/20 [facility] Ti ue Tissue 12 JOSE GUADALUPE Modalities Modalities 04/23/20 [facility], [facility] Cryotherapy Cold Cryotherapy Cold 12 JOSE GUADALUPE Packs Packs Physical Therapy: Physical Therapy: 85944 04/23/20 [facility] e flowsheet [facility] ___ Se ion ___ Session 12 JOSE GUADALUPE Segments, 15 Segments, 15 Minutes Each Minutes Each Immunization Admin Immunization Admin 48078 04/19/20 MAY WHITLEY Intranasal / Oral Intranasal / Oral 12 M. Each Additional Each Additional Vaccine Vaccine Influenza Virus 04/19/20 MAY WHITLEY oD Vaccine Intranasal 12 M. Live Attenuated Modalities Modalities 93754 04/18/20 [facility], [facility] Cryotherapy Cold Cryotherapy Cold 12 JOSE GUADALUPE Packs Packs Physical Therapy: Physical Therapy: 61485 04/18/20 [facility] e flowsheet [facility] ___ Se ion ___ Session 12 JOSE GUADALUPE Segments, 15 Segments, 15 Minutes Each Minutes Each Modalities Modalities 63549 04/17/20 [facility], [facility] Cryotherapy Cold Cryotherapy Cold 12 JOSE GUADALUPE Packs Packs Physical Therapy: Physical Therapy: 46858 04/17/20 [facility] e flowsheet [facility] ___ Se ion ___ Session 12 JOSE GUADALUPE Segments, 15 Segments, 15 Minutes Each Minutes Each Modalities Modalities 58619 04/11/20 [facility], [facility] Cryotherapy Cold Cryotherapy Cold 12 JOSE GUADALUPE Packs Packs Physical Therapy: Physical Therapy: 82917 04/11/20 [facility] e flowsheet [facility] ___ Se ion ___ Session 12 JOSE GUADALUPE Segments, 15 Segments, 15 Minutes Each Minutes Each Modalities Modalities 45553 04/09/20 [facility], [facility] Cryotherapy Cold Cryotherapy Cold 12 JOSE GUADALUPE Packs Packs Physical Therapy: Physical Therapy: 03088 04/09/20 [facility] e flowsheet [facility] ___ Se ion ___ Session 12 JOSE GUADALUPE Segments, 15 Segments, 15 Minutes Each Minutes Each Modalities Modalities 08367 04/05/20 [facility], [facility] Cryotherapy Cold Cryotherapy Cold 12 JOSE GUADALUPE Packs Packs Physical Therapy: Physical Therapy: 38996 04/05/20 [facility], e flowsheet DoD ___ Se ion ___ Session 12 JOSE GUADALUPE Segments, 15 Segments, 15 Minutes Each Minutes Each Modalities Modalities 18176 04/03/20 [facility], [facility] Cryotherapy Cold Cryotherapy Cold 12 JOSE GUADALUPE Packs Packs Mobilization Soft Mobilization Soft 28149 04/03/20 [facility], fo am roll DoD Ti ue Tissue 12 JOSE GUADALUPE Physical Therapy: Physical Therapy: 90513 04/03/20 [facility], ke and DoD ___ Se ion ___ Session 12 JOSE GUADALUPE stretch Segments, 15 Segments, 15 Minutes Each Minutes Each Modalities Modalities 75377 04/02/20 [facility], [facility] Cryotherapy Cold Cryotherapy Cold 12 JOSE GUADALUPE Packs Packs Mobilization Soft Mobilization Soft 83114 04/02/20 [facility], [facility] Ti ue Tissue 12 JOSE GUADALUPE Physical Therapy: Physical Therapy: 71847 04/02/20 [facility], ke and DoD ___ Se ion ___ Session 12 JOSE GUADALUPE stretch only Segments, 15 Segments, 15 Minutes Each Minutes Each Modalities Modalities 02131 04/01/20 [facility], [facility] Cryotherapy Cold Cryotherapy Cold 12 JOSE GUADALUPE Packs Packs Mobilization Soft Mobilization Soft 95943 04/01/20 [facility], [facility] Ti ue Tissue 12 JOSE GUADALUPE Physical Therapy: Physical Therapy: 56724 04/01/20 [facility], e flowsheet DoD ___ Se ion ___ Session 12 JOSE GUADALUPE Segments, 15 Segments, 15 Minutes Each Minutes Each Mobilization Soft Mobilization Soft 70314 04/01/20 [facility], fo am roll LE DoD Ti ue Tissue 12 JOSE GUADALUPE Physical Therapy: Physical Therapy: 76801 04/01/20 [facility], e flowsheet DoD ___ Se ion ___ Session 12 JOSE GUADALUPE attached Segments, 15 Segments, 15 Minutes Each Minutes Each Mobilization Soft Mobilization Soft 76148 03/27/20 [facility], [facility] Ti ue Tissue 12 JOSE GUADALUPE Modalities Modalities 04231 03/27/20 [facility], [facility] Cryotherapy Cold Cryotherapy Cold 12 JOSE GUADALUPE Packs Packs Physical Therapy: Physical Therapy: 72833 03/27/20 [facility], e flowsheet DoD ___ Se ion ___ Session 12 JOSE GUADALUPE Segments, 15 Segments, 15 Minutes Each Minutes Each Physical Therapy: Physical Therapy: 69881 03/27/20 CLEO e flowsheet DoD ___ Se ion ___ Session 12 JOSE GUADALUPE Segments, 15 Segments, 15 Minutes Each Minutes Each Athletic Training 03/25/20 [facility] Re-evaluation 12 JOSE GUADALUPE Modalities Modalities 85585 02/13/20 [facility] Cryotherapy Cold Cryotherapy Cold 12 REGINO ZAIN Packs Packs Physical Therapy 02/13/20 Do EDGAR D Service 12 REGINO ZAIN Re-Evaluation Modalities Modalities 48449 02/06/20 [facility] Cryotherapy Cold Cryotherapy Cold 12 JOSE GUADALUPE Packs Packs Athletic Training 02/06/20 [facility] Evaluation 12 JOSE GUADALUPE Immunization Immunization 82919 02/05/20 ORIN GARCIA Administration By Administration By 12 A Injection, One Injection, One Vaccine Vaccine Vaccines Viral Vaccines Viral 51626 02/05/20 ORIN GARCIA [facility] Varicella (Active) Varicella (Active) 12 A Physician Physician 27216 02/05/20 ORIN GARCIA [facility] Supervised Supervised 12 A Injection Injection Subcutaneous Subcutaneous Modalities Modalities 93715 01/10/20 [facility] Cryotherapy Cold Cryotherapy Cold 12 JOSE GUADALUPE Packs Packs Athletic Training 01/10/20 [facility] Re-evaluation 12 JOSE GUADALUPE Modalities Modalities 89643 12/26/19 [facility] Cryotherapy Cold Cryotherapy Cold 12 JOSE GUADALUPE Packs Packs Modalities Modalities 03539 12/26/19 [facility], [place] 3.3MHz [facility] Ultrasound Ultrasound 12 JOSE GUADALUPE continuous at 1.0 W/cm2 x 5 min ea Athletic Training 12/26/19 [facility] Re-evaluation 12 JOSE GUADALUPE A e /Interv 12/25/19 PAVIC, [facility] Discharge Meds 12 JORY Reconciled W/ Current Meds List Modalities Modalities 08966 12/18/19 [facility] Cryotherapy Cold Cryotherapy Cold 12 JOSE GUADALUPE Packs Packs Athletic Training 12/18/19 [facility] Re-evaluation 12 JOSE GUADALUPE Modalities Modalities 79194 12/13/19 [facility] Cryotherapy Cold Cryotherapy Cold 12 JOSE GUADALUPE Packs Packs Athletic Training 12/13/19 [facility] Re-evaluation 12 JOSE GUADALUPE Crutches, 12/12/19 [facility] underarm, wood, 12 JOSE GUADALUPE adjustable or fixed, pair, with pads, tips and handgrips Physical Therapy Physical Therapy 90596 12/12/19 [facility], savitaut ch fitting [facility] Gait Training Gait Training 12 JOSE GUADALUPE and training Modalities Modalities 77244 12/12/19 [facility] Cryotherapy Cold Cryotherapy Cold 12 JOSE GUADALUPE Packs Packs Athletic Training 12/12/19 [facility] Evaluation 12 JOSE GUADALUPE Vaccines Vaccines 64517 11/30/19 MAY WHITLEY Adenovirus Type 4 Adenovirus Type 4 12 M. Live, For Oral Use Live, For Oral Use Vaccines Vaccines 01678 11/30/19 MYA WHITLEY Adenovirus Type 7 Adenovirus Type 7 12 M. Live, For Oral Use Live, For Oral Use Physician Physician 14470 11/30/19 MAY WHITLEY Supervised Supervised 12 M. Injection Injection Subcutaneous Subcutaneous Vaccines Viral Vaccines Viral 87528 11/30/19 MAY WHITLEY Varicella (Active) Varicella (Active) 12 M. Meningococcal (A, 11/30/19 MAY WHITLEY C, Y, W-135) 12 M. Oligosacch Diphtheria Toxoid Conj Vacc Vaccines Viral Vaccines Viral 45516 11/30/19 MAY WHITLEY Polio, Inactivated Polio, Inactivated 12 M. Tdap Vaccine Tdap Vaccine 94213 11/30/19 MAY WHITLEY oD 12 M. Hepatitis A Hepatitis A 76597 11/30/19 MAY WHITLEY Vaccine Adult Vaccine Adult 12 M. Dosage Dosage (Intramuscular (Intramuscular Use) Use) Immunization 11/30/19 MAY WHITLEY Administration By 12 M. Injection, Each Additional Vaccine Immunization Immunization 09195 11/30/19 MAY WHITLEY oD Administration By Administration By 12 M. Injection, One Injection, One Vaccine Vaccine Physician Physician 40678 11/30/19 MAY WHITLEY Supervised Supervised 12 M. Injection Injection Intramuscular Intramuscular Antibiotic Antibiotic [facility] 22169 11/29/19 Jun GIPSON Testing Testing 12 ERIN [place] [address] 11/28/19 Jun FARLEY Visual Acuity, Visual Acuity, 12 SHAKA Quantitative, Quantitative, Bilateral Bilateral Spectacles Spectacles 07019 11/28/19 Jun FARLEY Services Fitting Services Fitting 12 SHAKA Monofocal Except Monofocal Except For Aphakia [place] [address] 11/28/19 Jun FARLEY Refractive State Refractive State 12 SHAKA Venipuncture Venipuncture 10591 11/28/19 YULIYAJun RUBENS Skin Test Anergy Skin Test Anergy 28809 11/28/19 [facility] tuberculin tuberculin 12 RUBENS ATHLETIC TRAINING 05/22/20 Do D RE-EVALUATION 12 THERAPEUTIC 05/16/20 DoD PROCEDURE, 1 OR 12 MORE AREAS, EACH 15 MINUTES; GAIT TRAINING (INCLUDES STAIR CLIMBING) ATHLETIC TRAINING 05/01/20 Do D RE-EVALUATION 12 APPLICATION OF A 04/30/20 DoD MODALITY TO 1 OR 12 MORE AREAS; HOT OR COLD PACKS APPLICATION OF A 04/24/20 DoD MODALITY TO 1 OR 12 MORE AREAS; HOT OR COLD PACKS MANUAL THERAPY 04/22/20 DoD TECHNIQUES (EG, 12 MOBILIZATION/ MANIPULATION, MANUAL LYMPHATIC DRAINAGE, MANUAL TRACTION), 1 OR MORE REGIONS, EACH 15 MINUTES INFLUENZA VIRUS 04/19/20 DoD VACCINE, 12 TRIVALENT, LIVE (LAIV3), FOR INTRANASAL USE APPLICATION OF A 04/18/20 DoD MODALITY TO 1 OR 12 MORE AREAS; HOT OR COLD PACKS APPLICATION OF A 04/16/20 DoD MODALITY TO 1 OR 12 MORE AREAS; HOT OR COLD PACKS APPLICATION OF A 04/11/20 DoD MODALITY TO 1 OR 12 MORE AREAS; HOT OR COLD PACKS APPLICATION OF A 04/08/20 DoD MODALITY TO 1 OR 12 MORE AREAS; HOT OR COLD PACKS APPLICATION OF A 04/04/20 DoD MODALITY TO 1 OR 12 MORE AREAS; HOT OR COLD PACKS APPLICATION OF A 04/02/20 DoD MODALITY TO 1 OR 12 MORE AREAS; HOT OR COLD PACKS APPLICATION OF A 04/01/20 DoD MODALITY TO 1 OR 12 MORE AREAS; HOT OR COLD PACKS MANUAL THERAPY 03/29/20 DoD TECHNIQUES (EG, 12 MOBILIZATION/ MANIPULATION, MANUAL LYMPHATIC DRAINAGE, MANUAL TRACTION), 1 OR MORE REGIONS, EACH 15 MINUTES APPLICATION OF A 03/28/20 DoD MODALITY TO 1 OR 12 MORE AREAS; HOT OR COLD PACKS MANUAL THERAPY 03/27/20 DoD TECHNIQUES (EG, 12 MOBILIZATION/ MANIPULATION, MANUAL LYMPHATIC DRAINAGE, MANUAL TRACTION), 1 OR MORE REGIONS, EACH 15 MINUTES APPLICATION OF A 03/26/20 DoD MODALITY TO 1 OR 12 MORE AREAS; HOT OR COLD PACKS ATHLETIC TRAINING 03/25/20 Do D RE-EVALUATION 12 APPLICATION OF A 02/13/20 DoD MODALITY TO 1 OR 12 MORE AREAS; HOT OR COLD PACKS APPLICATION OF A 02/06/20 DoD MODALITY TO 1 OR 12 MORE AREAS; HOT OR COLD PACKS IMMUNIZATION 02/05/20 DoD ADMINISTRATION 12 (INCLUDES PERCUTANEOUS, INTRADERMAL, SUBCUTANEOUS, OR INTRAMUSCULAR INJECTIONS); 1 VACCINE (SINGLE OR COMBINATION VACCINE/TOXOID) APPLICATION OF A 01/10/20 DoD MODALITY TO 1 OR 12 MORE AREAS; HOT OR COLD PACKS APPLICATION OF A 12/26/19 DoD MODALITY TO 1 OR 12 MORE AREAS; HOT OR COLD PACKS DISCHARGE 12/25/19 DoD MEDICATIONS 12 RECONCILED WITH THE CURRENT MEDICATION LIST IN OUTPATIENT MEDICAL RECORD (COA) (BLAISE) APPLICATION OF A 12/18/19 DoD MODALITY TO 1 OR 12 MORE AREAS; HOT OR COLD PACKS APPLICATION OF A 12/13/19 DoD MODALITY TO 1 OR 12 MORE AREAS; HOT OR COLD PACKS CRUTCHES UNDERARM, 12/12/19 D oD WOOD, ADJUSTABLE 12 OR FIXED, PAIR, WITH PADS, TIPS AND HANDGRIPS POLIOVIRUS 11/30/19 DoD VACCINE, 12 INACTIVATED (IPV), FOR SUBCUTANEOUS OR INTRAMUSCULAR USE AUDIOMETRIC 11/29/19 DoD TESTING OF GROUPS 12 SCREENING TEST OF 11/28/19 Do D VISUAL ACUITY, 12 QUANTITATIVE, BILATERAL SKIN TEST; 11/28/19 DoD TUBERCULOSIS, 12 INTRADERMAL Social History Combined list of available smoking, tobacco, and other social history from [facility] facilities. Social History Type Response Date Comment Source Tobacco smoking status VA-TOBACCO NEVER USED 05/13/2018 [facility] This section is an empty DoD social history section.
--- OUTSIDE RECORDS SUMMARY | 2022-05-23 23:35 | XMS_ITS | Continuity of Care Document ---
:1990 Author Organization [facility] Address [address] [place] [address]- Care Team Providers Name Role Phone Deneen So NP Primary Care Physician Encounter [facility] NBR [id number] Date(s): 05/11/21 - 06/10/21 [facility] [address] [place] [id number] Attending Physician: Stewart Johns MD Allergies, [...]
--- OUTSIDE RECORDS SUMMARY | 2022-05-23 23:35 | XMS_ITS | Continuity of Care Document ---
:1990 Author Organization [facility] Adult Address [address] [place] [address]- Care Team Providers Name Role Phone Saray GARCIA, Deneen Primary Care Physician Encounter [facility] [place] Date(s): 11/09/21 - 12/09/21 [facility] Adult [address] [place] [address]- Attending Physician: Admtr, Trent8 Admitting Physician: Admtr, [...]
--- OUTSIDE RECORDS SUMMARY | 2022-05-23 23:35 | XMS_ITS | Continuity of Care Document ---
:1990 Author Organization [facility] [place] Adult Address [address] [place] [address]- Care Team Providers Name Role Phone Saray GARCIA, Deneen Primary Care Physician Encounter [facility] Date(s): 03/31/22 - 04/30/22 [facility] [place] Adult [address] [place] [address]- Allergies, Adverse Reactions, Alerts No Known Allergies [...] 11:34:00 EDT, 03/18/22 11:34:00 EDT, ER Tablet, [facility]/pharmacy #[id number], 1 tablet By Mouth Every 24 hours,[id number], 159, cm, 02/21/22 11:23:00 EDT, Height, 98.... Start Date: 03/18/22 Stop Date: 06/16/22 Status: OrderedbuPROPion 150 mg/24 hours (XL) oral tablet, extended release 1 tablet = 150 mg, By Mouth, Every 24 hours, for 30 days, # 30 tablet, 3 Refills, Acute 10/14/22 11:34:00 EST, 06/16/22 11:34:00 EDT, ER Tablet, [facility]/pharmacy #[id number], 1 tablet By Mouth Every 24 hours,[id number], 159, cm, 02/21/22 11:23:00 EDT, Height, 98.... Start Date: 06/16/22 Stop Date: 10/14/22 Status: Orderedhydroxychloroquine 200 mg oral tablet 2, tablet, By Mouth, Daily, # 60 tablet, Refills 3, Route to Pharmacy Electronically, [id number], 159, cm, 06/28/21 15:10:00 EST, Height, 98.4, [...] Care Team PersonnelName: Deneen So NP Address: [address] [place] [id number]
--- OUTSIDE RECORDS SUMMARY | 2022-05-23 23:35 | XMS_ITS | Continuity of Care Document ---
:1990 Author Organization [facility] Adult Address [address] [place] [address]- Care Team Providers Name Role Phone Deneen So NP Primary Care Physician Encounter [facility] Date(s): 02/21/22 - 03/23/22 [facility] Adult [address] [place] [address]- Attending Physician: Admtr, Trent8 Admitting Physician: Admtr, Ar8 Referring Physician: Admtr, Ar8 Allergies, Adverse Reactions, [...] 11:34:00 EDT, 03/18/22 11:34:00 EDT, ER Tablet, [facility]/pharmacy #[id number], 1 tablet By Mouth Every 24 hours,[id number], 159, cm, 02/21/22 11:23:00 EDT, Height, 98.... Start Date: 03/18/22 Stop Date: 06/16/22 Status: OrderedbuPROPion 150 mg/24 hours (XL) oral tablet, extended release 1 tablet = 150 mg, By Mouth, Every 24 hours, for 30 days, # 30 tablet, 3 Refills, Acute 10/14/22 11:34:00 EST, 06/16/22 11:34:00 EDT, ER Tablet, [facility]/pharmacy #[id number], 1 tablet By Mouth Every 24 hours,[id number], 159, cm, 02/21/22 11:23:00 EDT, Height, 98.... Start Date: 06/16/22 Stop Date: 10/14/22 Status: Ordered Problem List Condition Effective Dates [...]
--- OUTSIDE RECORDS SUMMARY | 2022-05-23 23:35 | XMS_ITS | Continuity of Care Document ---
:1990 Author Organization [facility] Address Unavailable , Care Team Providers Name Role Phone Deneen So NP Primary Care Physician Encounter [facility] [place] Date(s): 04/22/21 - 04/29/21 [facility] Attending Physician: Snehal Sandhu MD Referring Physician: [...] 08/09/20 17:17:00 EST, Route to Pharmacy Electronically, [facility]/pharmacy #[id number], Partial fill upon patient request ifthe prescription [...] Hepatic steatosis(Confirmed) Active Vitamin D deficiency(Confirmed) Active Vital Signs Most recent to oldest [Reference Range]: 1 Height 159 cm (04/22/21 4:35 PM) Weight 103.8 kg (04/22/21 4:35 PM) Pulse Rate [55-90 bpm] 73 bpm (04/22/21 4:35 PM) Body Mass Index [18.5-24.99] 41.06 *>HHI* (04/22/21 4:35 PM) Blood Pressure [90-138/55-84 mm Hg] 121/76 mm Hg (04/22/21 4:35 PM) Blood pressure sites Arm, right (04/22/21 4:35 PM) Weight Obtained Via Standing scale (04/22/21 4:35 PM) Social History Social History Type Response Smoking Status Never (less than 100 in life time) entered on: 08/09/20 Sex
--- OUTSIDE RECORDS SUMMARY | 2022-05-23 23:35 | XMS_ITS | Continuity of Care Document ---
:1990 Author Organization [facility] Adult Address [address] [place] [address]- Care Team Providers Name Role Phone Saray GARCIA, Deneen Primary Care Physician Encounter [facility] Date(s): 01/20/22 - 02/19/22 [facility] Adult [address] [place] [address]- Allergies, Adverse Reactions, Alerts No Known Allergies [...] 11:34:00 EDT, 01/17/22 11:34:00 EDT, ER Tablet, [facility]/pharmacy #[id number], 1 tablet By Mouth Every 24 hours,[id number], 159, cm, 01/17/22 11:06:00 EDT, Height, 98.... [...]
--- OUTSIDE RECORDS SUMMARY | 2022-05-23 23:35 | XMS_ITS | Continuity of Care Document ---
:1990 Author Organization [facility] Address Unavailable , Care Team Providers Name Role Phone Deneen So NP Primary Care Physician Encounter [facility] [place] Date(s): 05/19/21 - 05/26/21 [facility] Attending Physician: Renata Goss MD Referring Physician: Snehal Sandhu MD Allergies, Adverse Reactions, Alerts Substance Reaction [...] oldest [Reference Range]: 1 Height 159 cm (05/19/21 4:01 PM) Weight 105.1 kg (05/19/21 4:01 PM) Pulse Rate [55-90 bpm] 95 bpm *H* (05/19/21 4:01 PM) Body Mass Index [18.5-24.99] 41.57 *>HHI* (05/19/21 4:01 PM) Blood Pressure [90-138/55-84 mm Hg] 119/71 mm Hg (05/19/21 4:01 PM) Blood pressure sites Arm, right (05/19/21 4:01 PM) Weight Obtained Via Standing scale (05/19/21 4:01 PM) Social History Social History Type Response Smoking Status Never (less than 100 in life time) entered on: 08/09/20 Sex
--- OUTSIDE RECORDS SUMMARY | 2022-05-23 23:35 | XMS_ITS | Continuity of Care Document ---
:1990 Author Organization [facility] Address [address] [place] [address]- Care Team Providers Name Role Phone Deneen So NP Primary Care Physician Encounter [facility] Date(s): 08/17/21 - 09/16/21 [facility] [address] [place] [id number] Allergies, Adverse Reactions, Alerts No Known [...] Maintenance, 06/28/21 15:50:00 EST, Tablet, [facility]/pharmacy #[id number], Partial fill upon patient request if [...]
--- OUTSIDE RECORDS SUMMARY | 2022-05-23 23:35 | XMS_ITS | Continuity of Care Document ---
:1990 Author Organization [facility] Address [address] [place] [address]- Care Team Providers Name Role Phone Deneen So NP Primary Care Physician Encounter [facility] Date(s): 10/26/20 - 11/25/20 [facility] [address] [place] [id number] Attending Physician: AdmRylie sewell Admitting Physician: Admtr, Ar8 Referring Physician: Admtr, [...] 08/09/20 17:17:00 EST, Route to Pharmacy Electronically, [facility]/pharmacy #[id number], Partial fill upon patient request ifthe prescription [...]
--- OUTSIDE RECORDS SUMMARY | 2022-05-23 23:35 | XMS_ITS | Continuity of Care Document ---
:1990 Author Organization [facility] Address [address] [place] [address]- Care Team Providers Name Role Phone Deneen So NP Primary Care Physician Encounter [facility] NBR [id number] Date(s): 01/27/21 - 02/26/21 [facility] [address] [place] [id number] Attending Physician: Rylie Little Admitting Physician: AdmtrRylie Referring Physician: Admtr, Rylie Allergies, Adverse Reactions, Alerts Substance Reaction Severity [...] 08/09/20 17:17:00 EST, Route to Pharmacy Electronically, [facility]/pharmacy #[id number], Partial fill upon patient request ifthe prescription [...]
--- OUTSIDE RECORDS SUMMARY | 2022-05-23 23:36 | XMS_ITS ---
:1990 Author Care Team Providers Name Role Phone [facility] Primary Care Provider Unavailable Allergies Code Code System Name Reaction Severity Status Onset NKDA ? Medications Name Status Start Date Stop Date ? ? amitriptyline 50 mg tablet Active ? Not a vailable Take 1 tablet every day by oral route. ProAir HFA 90 mcg/actuation aerosol inhaler Active ? Not available Inhale 2 puffs every 4 hours by inhalation route. Problems None recorded. Procedures None recorded. Results Lab Results Date Name Specimen Result Interpretation Description Value Range Status Address ? 06/27/2017 Culture, THROAT ? Throat normal ? Final [place] [facility]: [address] [facility] Past Encounters None recorded. Social History None recorded. Vaccine List None recorded. Plan of Care Reminders Provider Appointments None recorded. ? ? Lab None recorded. ? ? Referral None recorded. ? ? Procedures None recorded. ? ? Surgeries None recorded. ? ? Imaging None recorded. ? ? Vitals Weight Blood Pressure 206 lbs 16 oz 126/84 mm[Hg]
--- NOTE | 2022-05-23 23:37 | ED_ITS ---
HPI - General Adult General Chief complaint: Eye Problems Stated complaint: R Eye swelling Time Seen by Provider: 05/23/22 23:27 Source: patient Mode of arrival: ambulatory Limitations: no limitations History of Present Illness HPI narrative: 31-year-old female history of Sjogren's disease presenting to the emergency department with complaints of sudden-onset right eye pain times an hour and half. Patient tells me that the pain started while she was watching TV in a dark room she suddenly got pain and pressure to the right eye and some blurred vision. Patient tells me that this is never happened to her before. She tells me after she got these symptoms she started experiencing right-sided headache, described as severe in nature. Patient tells me she felt fine all day. At this time she denies chest pain, shortness of breath, dizziness, weakness, difficulties with ambulation, difficulties opening her jaw, pain to her taoism region, scalp tenderness, nausea, vomiting, abdominal pain. Patient on meth otrexate for her Sjogren's. Patient denies trauma to the eye/face. Patient not on blood thinners. Related Data Allergies Allergy/AdvReac Type Severity Reaction Status Date / Time No Known Allergies Allergy Verified 03/25/22 12:21 Review of Systems Review of Systems: Constitutional : No Weight loss, No Fever, No Chills, No Fatigue, No Malaise ENT/Mouth : No sore throat, No Rhinorrhea Eyes: + Eye Pain, No Swelling, No Redness Cardiovascular : No Chest Pain, No SOB, No Dyspnea on Exertion, No Orthopnea, No Edema, No Palpitations Respiratory : No Cough, No Sputum, No Wheezing Gastrointestinal : No Nausea, No Vomiting, No Diarrhea, No Constipation, No abdominal Pain, No Hematochezia, No Melena Genitourinary : No Dysuria, No Urinary Frequency, No Hematuria, Musculoskeletal : No joint pain, No Myalgias, No Joint Swelling Skin : No Skin Lesions, No rash Neuro : No Weakness, No Numbness, No Dizziness, + Headache Psych : No Anxiety/Panic, No Depression All other systems reviewed and are negative Yes all other systems are reviewed and are negative [facility] Past Medical History Attestation statement: The following information was validated with the patient. Source: old records reviewed and nursing notes reviewed Social History Social History (Reviewed 05/23/22 @ 23:39 by SHANE Godfrey Advance Directives: No Advance Directives Information Provided: No Physical Exam ED Vital Signs: Vital Signs - 24 hr 05/23/22 23:06 05/24/22 00:28 Temperature 98.5 F Pulse Rate 103 H 69 Respiratory Rate 18 15 Blood Pressure 148/97 H 127/73 Pulse Oximetry 97 97 Oxygen Delivery Method Room Air Room Air BMI result Body Mass Index 40.7 Vital signs stable Appearance: Alert.? Oriented X3.? No acute distress.? Head: Normocephalic, atraumatic, no step-offs or deformities. No pain with palpation of temporal arteries. No scalp tenderness. Eyes: Pupils equal, round and reactive to light.? Extraocular movements intact, pain-free, no nystagmus. Visual shannon by confrontation intact. Patient repor ts photosensitivity when light is shined into the right eye. Eye exam: Pressure in the left eye 23, right eye 17. Neck: Normal inspection.? Neck supple.? CVS: Normal heart rate and rhythm.? Pulses normal.? Respiratory: No respiratory distress.? Breath sounds normal.? Abdomen: Soft and nontender.? Skin: Skin warm and dry.? Normal skin color.? Normal skin turgor.? Extremities: No lower extremity edema.? No calf ttp. 5/5 strength to bilateral upper and lower extremities 2+ patellar DTRs equal bilateral Back: No midline tenderness, no C-spine tenderness, full range of motion, no CVA tenderness bilaterally Neuro: Oriented X 3.? No motor deficit.? No sensory deficit. CN 2-12 intact. Patient ambulating with steady gait, normal coordination. Normal [id number], pihm-[id number],. Negative pronator drift and normal Romberg test. GCS of 15. NIH stroke scale 0. Course Course Course Narrative: Discussed this case with my attending who agrees with find treatment plan. Reevaluation(s) Reevaluation #1: CBC appears to be within normal limits. Chemistry with no acute findings. CRP appears to be at patient's baseline. COVID negative. Based off inflammatory markers I do not suspect polymyalgia rheumatica, temporal arteritis. Time: 00:35 Reevaluation #2: Dr. Merida to take over care for this patient pending reevaluation, CT, Time: 00:46 Medical Decision Making [facility] Narrative Medical decision making narrative: 0948 31-year-old female presents to the emergency department with sudden-onset right eye pain/pressure and blurred vision along with right-sided headache. Reports this started about an hour and a half ago/prior to her arrival. Physical examination with a pressure of 23 to the left eye and 17 to the right eye. Extraocular movements intact, pupils equal round and reactive to light. Patient reports sensitivity to light when shining light into the right eye. Neuro exam nonfocal. Cerebellar function intact. Reflexes 2+ equal bilateral. Negative pronator drift, normal Romberg test. Regular rate and rhythm, lungs clear, abdomen soft nontender nondistended. Patient ambulating with steady gait. No pain with palpation of scalp or temporal arteries. Unlikely that this is wet macular degeneration or acute angle closure glaucoma. Unlikely stroke or posterior stroke. Likely complex migraine or ocular migraine. Will obtain ESR CRP to rule out temporal arteritis Plan at this time is labs, imaging. To know NIH stroke scale is negative. Medical Records Medical records reviewed: Yes I reviewed the patient's medical records. Lab Data Lab results reviewed: Yes I reviewed the patient's lab results. Result diagrams: 05/23/22 23:52 05/23/22 23:52 Labs: Lab Results 05/23/22 05/23/22 05/23/22 Range/Units 23:52 23:52 23:53 WBC 7.3 (4.8-10.8) X10*3/uL RBC 4.66 (4.20-5.50) X10*6/uL Hgb 13.2 (12.0-16.0) g/dl Hct 41.0 (37.0-47.0) % MCV 88.0 (80.0-98.0) fL MCH 28.3 (27.0-33.0) pg MCHC 32.2 (31.0-35.0) g/dl RDW 13.0 (11.0-16.0) % Plt Count 305 (160-400) X10*3/uL MPV 10.0 (9.4-12.3) fL Immature Gran % (Auto) 0.7 H (0.0-0.4) % Neut % (Auto) 57.0 (45-73) % Lymph % (Auto) 30.6 (20-40) % [place] % (Auto) 9.5 (2-11) % Eos % (Auto) 1.8 (0-4) % Baso % (Auto) 0.4 (0-2) % Lymph # (Auto) 2.2 (1.2-4.9) X10*3/uL [place] # (Auto) 0.7 (0.1-1.2) X10*3/uL Eos # (Auto) 0.1 (0.0-0.4) X10*3/uL Baso # (Auto) 0.0 (0.0-0.2) X10*3/uL Abs Immat Gran (auto) 0.05 H (0.00-0.03) X10*3/uL Absolute Neuts (auto) 4.1 (2.0-8.3) x10*3/uL Absolute Nucleated RBC 0.000 (0.0-0.012) X10*3/uL Nucleated RBC % (auto) 0.0 (0.0-0.2) /100WBC Sodium 142 (135-145) mmol/L Potassium 4.4 (3.3-5.1) mmol/L Chloride 105 (96-108) mmol/L Carbon Dioxide 26 (22-29) mmol/L Anion Gap 15 (12-20) BUN 15 (9-16) mg/dL Creatinine 1.02 (0.5-1.4) mg/dL Estim Creat Clear Calc 91.5 Estimated GFR > 60 Random Glucose 94 (60-115) mg/dL Calcium 9.6 (8.4-10.2) mg/dL Magnesium 1.9 (1.6-2.6) mg/dL Total Bilirubin < 0.2 (0.0-1.0) mg/dL AST 27 (5-31) U/L ALT 64 H (0-31) U/L Alkaline Phosphatase 83 D (39-117) U/L C-Reactive Protein 0.74 H (< or = 0.50) mg/dL Total Protein 7.4 (6.5-8.0) g/dL Albumin 4.4 (3.5-5.0) g/dL COVID-19 (YUMI) Negative (Negative) COVID-19 Clin Com See Note Critical Care Time Critical Care Time Critical Care Time: No Discharge Plan Discharge Clinical Impression: Ocular migraine Patient Disposition: Still a Patient Instructions: Ocular Migraine (ED) Additional Instructions: Take your medications as prescribed. If you were prescribed antibiotics today, it is important that you take your medication to their entirety, do not skip any doses, do not finish them early. Follow-up with your primary care provider this week. Follow-up with neurology information below. Return to the emergency department with new or worsening symptoms. Such as fevers, chills, chest pain, shortness of breath, nausea, vomiting, dizziness, headache, vision changes, lethargy, weakness In case of emergency call 911 Referrals: [facility] Neuro/Sleep [Provider Group] - 1 week Physician,Unknown J [Primary Care Provider] - 2 days Stand Alone Forms: Work/School Release
[2022-05-23 23:58] LABS: MANUAL DIFF FLAG NO
[2022-05-23 23:59] LABS: Basophils Percent Auto 0.4 % (0-2); Eosinophils Absolute Auto 0.1 X10*3/uL (0.0-0.4); Eosinophils Percent Auto 1.8 % (0-4); Hemoglobin 13.2 g/dl (12.0-16.0); Imm Gran Abs Auto 0.05 X10*3/uL (0.00-0.03); Imm Gran Pct Auto 0.7 % (0.0-0.4); Lymphocytes Absolute Auto 2.2 X10*3/uL (1.2-4.9); Lymphocytes Percent Auto 30.6 % (20-40); Mean Corpuscular HGB Conc 32.2 g/dl (31.0-35.0); Mean Corpuscular Hemoglobin 28.3 pg (27.0-33.0); Monocytes Absolute Auto 0.7 X10*3/uL (0.1-1.2); Monocytes Percent Auto 9.5 % (2-11); Neutrophils Absolute Auto 4.1 x10*3/uL (2.0-8.3); Platelet Count 305 X10*3/uL (160-400); Red Blood Count 4.66 X10*6/uL (4.20-5.50); White Blood Count 7.3 X10*3/uL (4.8-10.8)
[2022-05-24 00:16] LABS: COVID-19 Test Negative (Negative)
[2022-05-24 00:22] LABS: Alanine Aminotransferase 64 U/L (0-31); Albumin Level 4.4 g/dL (3.5-5.0); Alkaline Phosphatase 83 U/L (39-117); Anion Gap 15 (12-20); Aspartate Amino Transferase 27 U/L (5-31); Bilirubin Total < 0.2 mg/dL (0.0-1.0); Blood Urea Nitrogen 15 mg/dL (9-16); C Reactive Protein 0.74 mg/dL (< or = 0.50); Calcium 9.6 mg/dL (8.4-10.2); Carbon Dioxide 26 mmol/L (22-29); Chloride 105 mmol/L (96-108); Creatinine Clr Calc Pharmacy 91.5; Estimated Glomerular Filt Rate > 60; Glucose Random 94 mg/dL (60-115); Magnesium 1.9 mg/dL (1.6-2.6); Potassium 4.4 mmol/L (3.3-5.1); Sodium 142 mmol/L (135-145); Total Protein 7.4 g/dL (6.5-8.0)
[2022-05-24 00:28] VITALS: BP 127/73; PULSE 69; RESP 15; O2SAT 97
[2022-05-24 00:48] LABS: Erythrocyte Sedimentation Rate 12 MM/HR (0-20)
[2022-05-24 00:50] LABS: Appearance Urine Clear; Color Urine Yellow; Glucose Urine UA Negative (Negative); Leukocyte Esterase Urine Small (1+) (Negative); Nitrite Urine Positive (Negative); Specific Gravity - Urine >= 1.030 (1.005-1.025); UMIC TRIGGER UACC YES; Urine Blood Negative (Negative); Urine Ketones Trace mg/dL (Negative); Urine Protein Negative (Neg-Trace)
[2022-05-24 00:55] LABS: Bacteria Urine 1+ (None Seen); Hyaline Casts Urine 0-2 /LPF (0-2); RBC Urine 0-2 /HPF (0-2); UACC Culture Trigger YES; WBC Urine 21-50 /HPF (0-5)
[2022-05-24] MEDS: Morphine Sulfate 4 MG/ML CARTRIDGE IVPUSH (00:57)
--- NOTE | 2022-05-24 01:04 | PC.NURSE ---
Pt aox4. Reports right eye discomfort it feels as if im looking from under water. Pt states rubbing eye earlier in the day and liquid came out . Reports 10/10 due to photophobia. Lights dimmed. Pt aware of plan of care. Will continue to monitor.
[2022-05-24 01:56] VITALS: BP 110/66; PULSE 84; RESP 18; O2SAT 96
[2022-05-24] MEDS: dexAMETHasone sod phosphate 10 MG/ML VIAL IVPUSH (02:12)
[2022-05-24] MEDS: diphenhydrAMINE HCL 50 MG/ML VIAL 25 MG IVPUSH (02:13)
== END 2022-05-24 02:32 | disposition home or self-care (01) ==
PROVIDERS: Physician Assistant; Emergency Provider Internal Medicine
DX: G43.909 Migraine, unspecified, not intractable, without status migrainosus (principal); H57.11 Ocular pain, right eye; Z20.822 Contact with and (suspected) exposure to COVID-19; Z79.899 Other long term (current) drug therapy
CPT/HCPCS: 36415; 70450; 80053; 81001; 83735; 85025; 85652; 86140; 87086; 87088; 87186; 87635; 96374; 96375; 99284; J1100; J1200; J2270